=== PATIENT | male | born 1960 | race Caucasian/White ===

== ENCOUNTER 2018-11-14 16:39 | Inpatient (IN) | payer OTHER ==
[2018-11-14 17:28] LABS: #Eosinphils 0.1 thou/uL (0.0-0.7); #Lymphocytes 1.2 thou/uL (1.20-3.40); #Monocytes 0.8 thou/uL (0.11-0.59); #Neutrophils 7.5 thou/uL (1.40-6.50); %Basophils 0.1 % (0.0-1.0); %Eosinophils 0.7 % (0.0-10.0); %Lymphocytes 12.6 % (21.0-51.0); %Monocytes 8.6 % (0.0-10.0); Hemoglobin 11.5 g/dL (14.0-18.0); Mean Corpuscular HGB CONC 33.3 g/dL (32.0-36.0); Mean Corpuscular Hemoglobin 30.3 pg (27.0-31.0); Mean Corpuscular Volume 91.1 fL (78.0-98.0); Mean Platelet Volume 7.8 fL (7.4-10.4); Platelet Count 138 thou/uL (130-400); Red Blood Cell (RBC) Count 3.79 mill/uL (4.70-6.10); White Blood Cell (WBC) Count 9.7 thou/uL (4.8-10.8)
[2018-11-14 17:53] LABS: ALT (SGPT) 16 U/L (8-55); AST (SGOT) 35 U/L (5-34); Alkaline Phosphatase 127 U/L (40-150); Anion Gap 9 mmol/L (10-20); BUN (Urea Nitrogen) 21 mg/dL (8.4-25.7); Bilirubin, Total 0.4 mg/dL (0.2-1.2); Calc. Creatinine Clearance 0 mL/min (70-130); Calcium 7.3 mg/dL (7.8-10.44); Carbon Dioxide 23 mmol/L (22-29); Chloride 102 mmol/L (98-107); Estimated GFR-MDRD 37; Globulin 3.6 g/dL (2.4-3.5); Glucose 134 mg/dL (70-105); Potassium 4.3 mmol/L (3.5-5.1); Protein, Total 5.6 g/dL (6.0-8.3); Sodium 130 mmol/L (136-145)
[2018-11-14] MEDS ORDERED: HYDROcodone/Acetaminophen 5/325 mg Tablet ONE (19:29)
--- NOTE | 2018-11-14 19:54 | RAD ---
LEFT FOOT RADIOGRAPHS THREE VIEWS: 11/14/2018 PROVIDED CLINICAL HISTORY: Left toe wound. FINDINGS: There is no evidence for fracture. Alignment appears anatomic. Joint spaces appear preserved. Vasc ular calcifications are seen. No lytic or blastic osseous lesion is evident. IMPRESSION: No radiographic evidence for an acute osseous abnormality. POS: [facility]
--- NOTE | 2018-11-14 20:01 | RAD ---
PORTABLE CHEST 11/14/18 PROVIDED CLINICAL HISTORY: Edema. FINDINGS: Comparison 02/17/17. The cardiac and mediastinal silhouette is within normal limits. Left subclavian cardiac pacing device is again seen in similar position. No focal consolidation, pleural fluid or pneumothorax apparent. IMPRESSION: No evidence for an acute cardiopulmonary process. POS: [facility]
--- NOTE | 2018-11-15 00:50 | PDOC.FPRHP ---
- History of Present Illness Chief Complaint: toe pain History of Present Illness: Patient is a 58YOM with a PMH significant for CAD, CKD stage III, DMI, and a h/ o a LUE VTE on chronic anticoagulation with warfarin who [facility]/ a CC of left toe pain that began about 1 week ago. The patient reported first noticing 2 small sores on the dorsal surface of his left foot at the base of his second toe. He said over the course of the week he subsequently developed additional swelling to the point where he started to have purulent discharge and was unable to bear weight in the ball of his left foot 2/2 pain. He reported the pain to be 8/10 on exam while sitting on the hospital bed not bearing any weight. He described it as throbbing and constant in character and endorsed exacerbation with weight bearing. He also reported feeling pain in his left great toe as well. He denied any associated fever/chills or N/V. The patient also reported feeling chest pain prior to his arrival that he described as being located in his epigastrium rather than his chest that was occasionally sharp in nature and exacerbated with leaning forward. He did endorse of h/o GERD and said he takes ranitidine for this. Says the pain is similar to pain he has had before and had actually much improved since his arrival to the ED. ED Course: IV morphine, PO [place], and started on LR @ 140mL/hr - Allergies/Adverse Reactions Allergies Allergy/AdvReac Type Severity Reaction Status Date / Time codeine Allergy Verified 02/17/17 23:49 - Home Medications Medication Instructions Recorded Confirmed Type Allopurinol 300 mg PO BID 11/15/18 11/15/18 History Aspirin [Aspirin Chewable] 81 mg PO DAILY 11/15/18 11/15/18 History Atorvastatin Calcium [Lipitor] 10 mg PO DAILY 11/15/18 11/15/18 History Calcium Carb/Vitamin D3/Vit K1 1 tablet PO DAILY 11/15/18 11/15/18 History [Calcium + D Soft Chewable Tablet] Fludrocortisone Acetate 0.1 mg PO DAILY 11/15/18 11/15/18 History Humulin R [NovoLIN R] 35 units SC BID 11/15/18 11/15/18 History Humulin R [Novolin R] 8 unit SC QAM 11/15/18 11/15/18 History Humulin R [Novolin R] 8 unit SC QPM 11/15/18 11/15/18 History Isosorbide Mononitrate [Isosorbide 30 mg PO DAILY 11/15/18 11/15/18 History Mononitrate ER] Lisinopril [Zestril] 5 mg PO DAILY 11/15/18 11/15/18 History Spironolactone [Aldactone] 25 mg PO BID 11/15/18 11/15/18 History Venlafaxine HCl [Venlafaxine HCl 150 mg PO DAILY 11/15/18 11/15/18 History ER] Warfarin Sodium 3 tab PO QPM 11/15/18 11/15/18 History - History PMHx: CAD, CKD (unknown stage), Type 1 DM, HTN, HLD, Hep C, Anemia, BPH, GERD, hx of left arm DVT PSHx: pacemaker/defib placement FHx: sister and aunt DM, father: [place] Social: 1 PPD x 10 years, no alcohol, meth use at 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18, currently incarcerated - Vital signs BP: [144/87] HR: [92] RR: [16] Tmax: [98.5] Pox: [98 ]% on [RA] Wt: [92 kg] FMR H&P: Results - Labs Result Diagrams: 11/15/18 04:25 11/15/18 04:25 Lab results: WBC 9.7 thou/uL (4.8-10.8) 11/14/18 17:15 Hgb 11.5 g/dL (14.0-18.0) L 11/14/18 17:15 Hct 34.5 % (42.0-52.0) L 11/14/18 17:15 MCV 91.1 fL (78.0-98.0) 11/14/18 17:15 Plt Count 138 thou/uL (130-400) 11/14/18 17:15 Neutrophils % 78.0 % (42.0-75.0) H 11/14/18 17:15 Sodium 130 mmol/L (136-145) L 11/14/18 17:15 Potassium 4.3 mmol/L (3.5-5.1) 11/14/18 17:15 Chloride 102 mmol/L (98-107) 11/14/18 17:15 Carbon Dioxide 23 mmol/L (22-29) 11/14/18 17:15 BUN 21 mg/dL (8.4-25.7) 11/14/18 17:15 Creatinine 1.88 mg/dL (0.7-1.3) H 11/14/18 17:15 Glucose 134 mg/dL (70-105) H 11/14/18 17:15 Calcium 7.3 mg/dL (7.8-10.44) L 11/14/18 17:15 Total Bilirubin 0.4 mg/dL (0.2-1.2) 11/14/18 17:15 AST 35 U/L (5-34) H 11/14/18 17:15 ALT 16 U/L (8-55) 11/14/18 17:15 Alkaline Phosphatase 127 U/L (40-150) 11/14/18 17:15 C-Reactive Protein 10.68 mg/dL (= or < 0.5) H 11/14/18 17:15 B-Natriuretic Peptide 274.8 pg/mL (0-100) H 11/14/18 17:15 Serum Total Protein 5.6 g/dL (6.0-8.3) L 11/14/18 17:15 Albumin 2.0 g/dL (3.5-5.0) L 11/14/18 17:15 FMR H&P: A/P - Problem List (1) Osteomyelitis Current Visit: Yes Status: Acute Code(s): M86.9 - OSTEOMYELITIS, UNSPECIFIED (2) Diabetic wet gangrene of the foot Current Visit: Yes Status: Acute Code(s): E11.52 - 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 GANGRENE (3) HTN (hypertension) Current Visit: Yes Status: Acute Code(s): I10 - ESSENTIAL (PRIMARY) HYPERTENSION (4) CAD (coronary artery disease) Current Visit: Yes Status: Acute Code(s): I25.10 - ATHSCL HEART DISEASE OF [place] CORONARY ARTERY W/O ANG PCTRS (5) Hepatitis C Current Visit: Yes Status: Acute Code(s): B19.20 - UNSPECIFIED VIRAL HEPATITIS C WITHOUT HEPATIC COMA (6) Anemia Current Visit: Yes Status: Acute Code(s): D64.9 - ANEMIA, UNSPECIFIED (7) BPH (benign prostatic hyperplasia) Current Visit: Yes Status: Acute Code(s): N40.0 - BENIGN PROSTATIC HYPERPLASIA WITHOUT LOWER URINRY TRACT SYMP (8) GERD (gastroesophageal reflux disease) Current Visit: Yes Status: Acute Code(s): K21.9 - GASTRO-ESOPHAGEAL REFLUX DISEASE WITHOUT ESOPHAGITIS (9) Neuropathy Current Visit: Yes Status: Acute Code(s): G62.9 - POLYNEUROPATHY, UNSPECIFIED (10) Venous thromboembolism Current Visit: Yes Status: Acute Code(s): I82.90 - ACUTE EMBOLISM AND THROMBOSIS OF UNSPECIFIED VEIN (11) CKD (chronic kidney disease) Current Visit: Yes Status: Acute Code(s): N18.9 - CHRONIC KIDNEY DISEASE, UNSPECIFIED (12) Adrenal insufficiency Current Visit: Yes Status: Acute Code(s): E27.40 - UNSPECIFIED ADRENOCORTICAL INSUFFICIENCY - Plan 58YOM w/ a PMH significant for CAD, HTN, DMI, and CKD of an unknown stage who [facility] with a CC of a painful left toe wound that had gotten progressively worse over the last week. Wet gangrene with suspected osteomyelitis of the second left toe: - Second toe of left foot covered with black eschar and bloody, purulent discharge noted to be draining from it. Foot x-ray negative for bony involvement but CRP elevated at 10. WBC WNLs & afebrile. Will likely need to contact radiology for further imaging recs given patient's poor renal function. Need to know if MRI needs to be done w/ contrast or if it will still be helpful even without contrast for osteo evaluation. - Will start on IV abx with vanc and zosyn and keep NPO after midnight pending a general surgery vs. CV surgery vs. podiatry consult in the AM. - Will start on IVFs with LR @ 140mL/hr. - Wound care consulted. - Repeat CBC and BMP in the AM w/ blood cultures pending. DMI: - Aware, will resume 1/2 home insulin dosing while NPO and order accuchecks Q6H with aggressive SSI due to documented daily requirements of >80 units per med list. HTN: - Aware, will resume home meds once NPO. Will consider starting on IV PRNs while NPO. CAD: - Aware, per the patient no stents have been placed. Will resume home meds once taking PO. h/o defibrillator & pacemaker placement per patient: - No documented h/o CHF but on all usual CHF meds. Will resume once tolerating PO. HLD: - Aware, will resume home meds once taking PO. chronic Hep C: - Patient reports being aware of this. - Will encourage f/u for treatment if he can get this while in [facility]. Suspected adrenal insufficiency: - Suspected 2/2 patient's hyponatremia in blood work and the fact that he takes fludrocortisone at home. - Will resume once tolerating PO and watch Na closely w/ QD BMPs. CKD 2/2 DMI at unknown stage: - Aware, will renally dose meds PRN. GERD: - Aware, will start on IV protonix while NPO. h/o VTE on chronic anticoagulation with warfarin: - Aware, will get baseline coags and start on SQ Lovenox for VTE PPx while NPO. - FMR H&P: Upper Level - Pertinent history 58 yr old male with PMH hx of type 1 DM, CAD, with foot pain who is incarcerated. Reports left 2nd toe and foot pain onset 1 week ago. Pain is worst to ball of his foot. States wound started out as 2 sores that started at base of 2nd toe only 1 week ago. No reported fevers. Patient report epigastric pain that is intermittent and chronic for him. Currently having epigastric pain but no chest pain. - Pertinent findings EKG: NSR without ST changes, normal AV conduction Foot X RAY: No acute osseous abnormalities. Gen: NAD, dressed in white linen Heart: RRR, no murmurs, rubs, gallops Lungs: CTAB, no wheezes, rhales, rhonchi Abd: epigstric tenderness, no guarding, BS + ExT: left 2nd toe gangrenous, black, moist with serous discharge, top of foot erythematous, mildly tender, ball of left foot exquisitely tender with blanched appearance neuro: CN 2-12 grossly normal. alert and oriented x 4. - Plan Date/Time: 11/15/18 0050 I, [Veronica Ni], have evaluated this patient and agree with findings/plan as outlined by international guest coordinator resident. Pertinent changes/additions are listed here. 58 yr old male with PMH of type 1 DM wet gangrene with concern for osteomyelitis -afebrile, WBC wnl, elevated CRP, x ray without evidence for osseous involvement -consider MRI of foot however has stage 3 CKD, need to discuss absolute need for contrast -start vanc and zosyn -consult surgery for further evaluation Type 1 DM -cont insulin -q 6hrs accuchecks HLD -cont statin CAD -trops stable, no chest pain -cont home meds Presumable adrenal insufficiency -obtain hx when available -cont fludracortisone GERD -start protonix HEP C -AST/ALT stable CKD stage 3 -unknown if this is acutely worsened CODE status: FULL PCP: CC, unknown Addendum - Attending - Attending Attestation Date/Time: 11/15/18 6266 I personally evaluated the patient and discussed the management with Dr. Pemberton. I agree with the History, Examination, Assessment and Plan documented above with any addition or exceptions noted below. The patient is admitted with suspected osteomyalitis of the left 2nd toe with gangrene. He is on broad spectrum antibiotics. CRP is elevated. Surgery has been consulted and is taking the patient to the OR.
[2018-11-15 02:01] LABS: Troponin I Less than 0.010 ng/mL (< 0.028)
[2018-11-15] MEDS ORDERED: Dextrose 5% in Water 1,000 ML IV PRN (02:29)
[2018-11-15] MEDS ORDERED: HumaLOG 300 UNITS/3 ML VIAL SC PRN (02:29)
[2018-11-15] MEDS ORDERED: Dextrose 50% Abboject 50 ML SYRINGE SLOW IVP PRN (02:29)
[2018-11-15] MEDS ORDERED: Ondansetron PF 4 MG/2 ML Vial IVP PRN (02:29)
[2018-11-15] MEDS ORDERED: Morphine 4 MG/ML VIAL ONE ×3 (03:25→16:34)
[2018-11-15] MEDS: Lactated Ringer's 1,000 ML IV SCH ×3 (03:29→16:50)
[2018-11-15] MEDS: Morphine 4 MG/ML VIAL SLOW IVP PRN ×3 (03:33→16:41)
[2018-11-15 04:36] LABS: #Eosinphils 0.1 thou/uL (0.0-0.7); #Lymphocytes 0.8 thou/uL (1.20-3.40); #Monocytes 0.7 thou/uL (0.11-0.59); #Neutrophils 6.2 thou/uL (1.40-6.50); %Basophils 0.4 % (0.0-1.0); %Lymphocytes 10.1 % (21.0-51.0); %Monocytes 8.4 % (0.0-10.0); %Neutrophils 80.2 % (42.0-75.0); Hemoglobin 12.2 g/dL (14.0-18.0); Mean Corpuscular HGB CONC 31.8 g/dL (32.0-36.0); Mean Corpuscular Hemoglobin 29.8 pg (27.0-31.0); Mean Corpuscular Volume 93.8 fL (78.0-98.0); Mean Platelet Volume 7.7 fL (7.4-10.4); Platelet Count 153 thou/uL (130-400); RBC Distribution Width 13.3 % (11.5-14.5); White Blood Cell (WBC) Count 7.8 thou/uL (4.8-10.8)
[2018-11-15 05:03] LABS: Anion Gap 10 mmol/L (10-20); BUN (Urea Nitrogen) 21 mg/dL (8.4-25.7); Calc. Creatinine Clearance 61 mL/min (70-130); Calcium 7.7 mg/dL (7.8-10.44); Carbon Dioxide 22 mmol/L (22-29); Chloride 102 mmol/L (98-107); Estimated GFR-MDRD 41; Glucose 187 mg/dL (70-105); Potassium 4.1 mmol/L (3.5-5.1); Sodium 130 mmol/L (136-145)
[2018-11-15 05:10] LABS: Troponin I Less than 0.010 ng/mL (< 0.028)
[2018-11-15 05:54] LABS: INR-International Normal Ratio 1.2; PTT 31.1 SEC (22.9-36.1); Prothrombin Time 15.4 SEC (12.0-14.7)
[2018-11-15] MEDS: Piperacillin/Tazobactam 3.375 GM in Sodium Chloride 0.9% 100 ML IVPB SCH ×3 (06:08→17:40)
[2018-11-15] MEDS: NPH, Human Insulin Isophane 300 UNIT/3 ML VIAL SC SCH ×2 (09:00→21:00)
[2018-11-15] MEDS ORDERED: Pantoprazole 40 MG VIAL ONE (10:28)
[2018-11-15] MEDS: Vancomycin HCl 1.5 GM in Sodium Chloride 0.9% 250 ML 300 ML IVPB SCH (10:44)
[2018-11-15] MEDS: Pantoprazole 40 MG VIAL IVP SCH (10:45)
--- NOTE | 2018-11-15 11:59 | HP ---
HISTORY OF PRESENT ILLNESS: Ty Thomas is a 58-year-old male, [address] incarcerated [address] [facility], presents with diabetic infection, left foot. He has a gangrenous left toe with cellulitis to his ankle. He has had plain x-rays not demonstrating osteomyelitis, but he has wet gangrene with cellulitis and edema. He has palpable pulses. ALLERGIES: CODEINE. SOCIAL HISTORY: Tobacco, use many years ago, but incarcerated for 16 years. Alcohol, none. MEDICATIONS: 1. Coumadin daily. 2. Venlafaxine ER 150 mg a day. 3. Spironolactone 25 mg b.i.d. 4. Lisinopril 5 mg a day. 5. Isosorbide 30 mg a day. 6. Insulin 8 units subcu p.m. and a.m. 7. Regular insulin 35 units subcu b.i.d. 8. Fludrocortisone 0.1 mg daily. 9. Atorvastatin 10 mg daily. 10. Aspirin 81 mg daily. 11. Allopurinol 300 mg daily. PAST MEDICAL HISTORY: Pacemaker, defibrillator, reports cardiac event in 2006, and reports cardiomyopathy. He does have occasional chest pain and takes nitroglycerin. He reports a cardiac catheterization 5 to 6 years ago in [facility]. Insulin-dependent diabetes mellitus, hypertension, hepatitis C, and chronic anticoagulation. PAST SURGICAL HISTORY: Defibrillator and pacemaker. REVIEW OF SYSTEMS: Ten-point, otherwise noncontributory. PHYSICAL EXAMINATION: VITAL SIGNS: 98.6, 90, and 166/94. LUNGS: Clear to auscultation. CARDIAC: Regular rate and rhythm without murmur or gallop. ABDOMEN: Soft positive fluid wave. Tattoos. Nontender. EXTREMITIES: Palpable femoral, popliteal, and pedal pulses. Walking boot right foot from recent foot surgery. Gangrenous left second toe wet gangrene, cellulitis, dorsum of the foot. Edema, left foot. ASSESSMENT AND PLAN: 1. Diabetic wet gangrenous infection, left second toe. Plan amputation of left second toe and metatarsal as indicated. He understands the risks and benefits and consents. We will amputate toes as necessary, but try to salvage as much foot as possible. 2. Diabetes mellitus, insulin dependent type 1. 3. Coronary artery disease; pacemaker, defibrillator, and anticoagulation. PT 15 and INR 1.2. Hold Coumadin. On Zosyn and vancomycin. Job ID: [id number]
[2018-11-15] MEDS ORDERED: Warfarin Sodium 7.5 MG TAB PO SCH (17:00)
[2018-11-15] MEDS ORDERED: Piperacillin/Tazobactam 3.375 GM VIAL ONE (18:07)
[2018-11-15] MEDS ORDERED: Acetaminophen 500 MG TAB PO PRN (20:29)
[2018-11-15] MEDS ORDERED: Midazolam HCl 2 mg/2 ml Vial ONE (20:41)
[2018-11-15] MEDS ORDERED: Fentanyl 100 MCG/2 ML VIAL ONE (20:41)
[2018-11-15] MEDS ORDERED: KETAMINE 100 MG/ML (5ML VIAL) ONE (20:41)
[2018-11-15] MEDS ORDERED: Atorvastatin Calcium 10 MG TAB PO SCH (21:00)
[2018-11-15] MEDS: Enoxaparin Sodium 40 MG/0.4 ML SYRINGE SC SCH (21:00)
[2018-11-15] MEDS: Allopurinol 300 MG TAB PO SCH (21:00)
[2018-11-15] MEDS: Spironolactone 25 MG TAB PO SCH (21:00)
[2018-11-15] MEDS: Atorvastatin Calcium 20 MG TAB PO SCH (21:00)
[2018-11-15] MEDS ORDERED: Promethazine HCl 25 MG/ML VIAL IM PRN (21:19)
[2018-11-15] MEDS ORDERED: Promethazine HCl 25 MG/ML VIAL SLOW IVP PRN (21:19)
[2018-11-15] MEDS ORDERED: Ondansetron HCl/PF 4 MG/2 ML Vial IVP PRN (21:19)
[2018-11-16] MEDS: Piperacillin/Tazobactam 3.375 GM in Sodium Chloride 0.9% 100 ML IVPB SCH ×6 (03:00→23:39)
--- NOTE | 2018-11-16 03:35 | OP ---
DATE OF PROCEDURE: 11/15/2018 PREOPERATIVE DIAGNOSES: 1. Diabetic infection involving left second toe and foot. 2. Congestive heart failure, diastolic dysfunction. Echocardiogram in 2014 revealed diastolic dysfunction with EF of 55%. New echocardiogram ordered. POSTOPERATIVE DIAGNOSES: 1. Diabetic infection involving left second toe and foot. 2. Congestive heart failure, diastolic dysfunction. Echocardiogram in 2014 revealed diastolic dysfunction with EF of 55%. New echocardiogram ordered. PROCEDURE: Amputation of left second toe metatarsal wound VAC to be applied tomorrow. ANESTHESIA: Regional TIVA. PROCEDURE IN DETAIL: The patient was taken to the operating room where under intravenous sedation with regional anesthesia, the left foot was prepared with ChloraPrep and draped in routine fashion. Amputation of left second toe, which was gangrenous, carried down through skin and subcutaneous tissue, metatarsal dissected free, resected proximally with rongeur. Cultures obtained and submitted for microbiology. Connective tissue debrided sharply. There was good bleeding in the soft tissues. Wound was irrigated. Good hemostasis obtained. Connective tissue debrided. Surgicel and gauze dressing applied. Job ID: [id number]
[2018-11-16] MEDS: traMADol HCl 50 MG TAB PO PRN ×3 (03:48→20:39)
[2018-11-16] MEDS: Lactated Ringer's 1,000 ML IV SCH ×2 (05:02→08:29)
--- NOTE | 2018-11-16 06:02 | PDOC.FM ---
- Subjective Subjective: Mr. Thomas reports he has recovered well. Has decreased sensation of L leg due to nerve block done in OR. Denies fever/chills. Plans to eat breakfast this morning. Urinating well. Has not passed gas yet. - Objective MAR Reviewed: Yes Vital Signs & Weight: Vital Signs (12 hours) Temp Pulse Resp BP Pulse Ox 11/16/18 03:41 98.4 F 87 16 118/64 98 11/16/18 00:05 96 Weight Weight 93 kg I&O: 11/14/18 11/15/18 11/16/18 06:59 06:59 06:59 Intake Total 520 Output Total 250 Balance 270 Result Diagrams: 11/15/18 04:25 11/15/18 04:25 Phys Exam - Physical Examination Constitutional: NAD HEENT: moist MMs Respiratory: clear to auscultation bilateral Cardiovascular: RRR, no significant murmur Gastrointestinal: soft, non-tender, positive bowel sounds RLE in bandage, decreased sensation. Neurological: non-focal Skin: normal turgor, cap refill <2 seconds Dx/Plan (1) Adrenal insufficiency Code(s): E27.40 - UNSPECIFIED ADRENOCORTICAL INSUFFICIENCY Status: Acute (2) BPH (benign prostatic hyperplasia) Code(s): N40.0 - BENIGN PROSTATIC HYPERPLASIA WITHOUT LOWER URINRY TRACT SYMP Status: Acute (3) CAD (coronary artery disease) Code(s): I25.10 - ATHSCL HEART DISEASE OF [place] CORONARY ARTERY W/O ANG PCTRS Status: Acute (4) CKD (chronic kidney disease) Code(s): N18.9 - CHRONIC KIDNEY DISEASE, UNSPECIFIED Status: Acute (5) Diabetic wet gangrene of the foot Code(s): E11.52 - 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 [place]ANGR[place] Status: Acute (6) GERD (gastroesophageal reflux disease) Code(s): K21.9 - GASTRO-ESOPHAGEAL REFLUX DISEASE WITHOUT ESOPHAGITIS Status: Acute (7) HTN (hypertension) Code(s): I10 - ESSENTIAL (PRIMARY) HYPERTENSION Status: Acute (8) Hepatitis C Code(s): B19.20 - UNSPECIFIED VIRAL HEPATITIS C WITHOUT HEPATIC COMA Status: Acute (9) Venous thromboembolism Code(s): I82.90 - ACUTE EMBOLISM AND THROMBOSIS OF UNSPECIFIED VEIN Status: Acute - Plan Plan: 58YOM w/ a PMH significant for CAD, HTN, DMI, and CKD of an unknown stage who presented to the ED from [facility] with a CC of a painful left toe wound that had gotten progressively worse over the last week. Wet gangrene, POD #1 s/p amputation - Continue vanc and zosyn (11/15) per surgery recs - discontinue IVF - Wound care consulted, plan for wound vac placement today - Blood cultures with staph epidermidis, likely contaminant - pain well controlled - wound culture pending IDDM2 - BG stable. Resume home medications HTN: - continue home meds CAD: - continue home meds h/o defibrillator & pacemaker placement per patient: - No documented h/o CHF but on all usual CHF meds, continue HLD: - continue home lipitor chronic Hep C: - Patient reports being aware of this. - Will encourage f/u for treatment if he can get this while in [facility]. Suspected adrenal insufficiency: - Suspected 2/2 patient's hyponatremia in blood work and the fact that he takes fludrocortisone at home. - continue. Patient does not know why he is on this medication. Will speak with [facility] today to get more history. - will check cortisol CKD 2/2 DM at unknown stage: GERD: - not on home medication for this h/o VTE on chronic anticoagulation with warfarin: - INR 1.2, subtherapeutic. will restart today Addendum - Attending - Attending Attestation Date/Time: 11/16/18 8295 I personally evaluated the patient and discussed the management with Dr. Pemberton. I agree with the History, Examination, Assessment and Plan documented above with any addition or exceptions noted below. Patient remains on IV antibiotics. Wound care is going to apply a wound vac. Cultures are pending. Will be clarifying some meds with [facility] as well as diagnoses as the pt states he doesn't know why he is on some meds.
[2018-11-16] MEDS: Spironolactone 25 MG TAB PO SCH ×2 (08:20→20:39)
[2018-11-16] MEDS: Calcium Carbonate + Vit D 1 TAB PO SCH (08:20)
[2018-11-16] MEDS: Venlafaxine HCl XR 150 MG CAP PO SCH (08:20)
[2018-11-16] MEDS: Lisinopril 5 MG TAB PO SCH (08:20)
[2018-11-16] MEDS: Fludrocortisone Acetate 0.1 MG TAB PO SCH (08:20)
[2018-11-16] MEDS: Allopurinol 300 MG TAB PO SCH ×2 (08:20→20:39)
[2018-11-16] MEDS: Pantoprazole 40 MG VIAL IVP SCH (08:20)
[2018-11-16] MEDS: Vancomycin HCl 1.5 GM in Sodium Chloride 0.9% 250 ML 300 ML IVPB SCH (08:27)
[2018-11-16] MEDS: NPH, Human Insulin Isophane 300 UNIT/3 ML VIAL SC SCH ×2 (11:44→20:48)
[2018-11-16] MEDS: Warfarin Sodium 2.5 MG TAB PO SCH (18:05)
--- NOTE | 2018-11-16 18:46 | PRG ---
DATE OF SERVICE: 11/16/2018 SUBJECTIVE: Mr. Thomas is doing well. He underwent amputation of wet gangrenous toe 11/15/2018, left second toe and metatarsal. Cultures reveal Staphylococcus aureus so far. Blood cultures 1 or 2 positive coagulase-negative Staphylococcus. The patient has wound VAC in place. I did call the [facility] yesterday and received a call back and was informed his last echocardiogram was in 2013 with ejection fraction 55% with diastolic dysfunction. I order another echocardiogram this morning, the results of which are pending. The patient has edema in upper and lower extremities and has a defibrillator pacemaker in place. He has been on anticoagulation Coumadin, but his PT/INR was normal on admission. The patient has had previous surgeries on his right foot and has been advised to use a walking boot when he is out of bed, but he can weightbear as tolerated when wearing the walking boot. I have ordered orthotic shoe left foot to be used when he is out of bed and can weightbear as tolerated left foot and I have asked Physical Therapy to see him to ambulate him. The patient's infected toe wound has been resected. Wound Care has been consulted to place a wound VAC this morning. I would plan to look at the wound next week Tuesday. The patient should continue intravenous antibiotics over the weekend and we would plan to probably discontinue intravenous antibiotics next week. If the wound looks good, he can transition to oral antibiotics for about 10 days. I will see the patient next Tuesday, wound care change. Dr. Mayberry is covering over the weekend. Please call if needed. Echocardiogram pending. Job ID: [id number]
[2018-11-16 19:24] LABS: Hemoglobin 10.8 g/dL (14.0-18.0); Platelet Count 137 thou/uL (130-400)
[2018-11-16] MEDS: Atorvastatin Calcium 20 MG TAB PO SCH (20:38)
[2018-11-16] MEDS: Enoxaparin Sodium 40 MG/0.4 ML SYRINGE SC SCH (20:39)
[2018-11-16] MEDS ORDERED: INSULIN REGULAR SC SCH ×2 (21:00)
[2018-11-17] MEDS: Piperacillin/Tazobactam 3.375 GM in Sodium Chloride 0.9% 100 ML IVPB SCH ×2 (05:57→12:33)
[2018-11-17] MEDS: traMADol HCl 50 MG TAB PO PRN ×3 (06:00→20:40)
--- NOTE | 2018-11-17 06:32 | PDOC.FM ---
- Subjective Subjective: Mr. Thomas notes that the nerve block is wearing off so he feels more pain, however it is well controlled. Good PO intake. Denies fever, SOB. Says continued swelling. - Objective MAR Reviewed: Yes Vital Signs & Weight: Vital Signs (12 hours) Temp Pulse Resp BP Pulse Ox 11/17/18 03:38 99.4 F 80 20 119/59 L 95 11/16/18 20:05 97 11/16/18 19:47 98.7 F 82 14 113/58 L 97 Weight Admit Weight 93 kg Weight 93 kg I&O: 11/15/18 11/16/18 11/17/18 06:59 06:59 06:59 Intake Total 660 299 1869 Output Total 892 974 8248 Balance 270 -51 -125 Result Diagrams: 11/17/18 07:05 11/17/18 07:05 Phys Exam - Physical Examination Constitutional: NAD Respiratory: clear to auscultation bilateral Cardiovascular: RRR, no significant murmur Gastrointestinal: non-tender, positive bowel sounds (Distended, tight) LE pitting edema, Left food wound vac/dressing in place. b/l arm edema Neurological: non-focal Psychiatric: normal affect Skin: normal turgor Dx/Plan (1) Adrenal insufficiency Code(s): E27.40 - UNSPECIFIED ADRENOCORTICAL INSUFFICIENCY Status: Acute (2) BPH (benign prostatic hyperplasia) Code(s): N40.0 - BENIGN PROSTATIC HYPERPLASIA WITHOUT LOWER URINRY TRACT SYMP Status: Acute (3) CAD (coronary artery disease) Code(s): I25.10 - ATHSCL HEART DISEASE OF [place] CORONARY ARTERY W/O ANG PCTRS Status: Acute (4) CKD (chronic kidney disease) Code(s): N18.9 - CHRONIC KIDNEY DISEASE, UNSPECIFIED Status: Acute (5) Diabetic wet gangrene of the foot Code(s): E11.52 - 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 GANGRENE Status: Acute (6) GERD (gastroesophageal reflux disease) Code(s): K21.9 - GASTRO-ESOPHAGEAL REFLUX DISEASE WITHOUT ESOPHAGITIS Status: Acute (7) HTN (hypertension) Code(s): I10 - ESSENTIAL (PRIMARY) HYPERTENSION Status: Acute (8) Hepatitis C Code(s): B19.20 - UNSPECIFIED VIRAL HEPATITIS C WITHOUT HEPATIC COMA Status: Acute (9) Venous thromboembolism Code(s): I82.90 - ACUTE EMBOLISM AND THROMBOSIS OF UNSPECIFIED VEIN Status: Acute - Plan Plan: 58YOM w/ a PMH significant for CAD, HTN, DMI, and CKD of an unknown stage who [facility] with a CC of a painful left toe wound that had gotten progressively worse over the last week. Wet gangrene, POD #2 s/p amputation - Continue vanc and zosyn (11/15) per surgery recs, will continue IV through weekend with switch to PO likely on Tuesday. - Wound care consulted, wound vac in place - Blood cultures with staph epidermidis, likely contaminant. - Wound culture with MRSA. - pain well controlled YANELIS on CKD of unknown stage - CKD 2/2 DM - Cr 1.7->2.3 today - continue to monitor - avoid nephrotoxic medications and renally dose vanc Anasarca - echo pending - on CHF medications however no known diagnosis. Last echo 2013 with EF 55% w/ diastolic dysfunction IDDM2 - BG stable. No SSI used. Currently at insulin dose less than home med. Will increase as needed. HTN: - continue home meds CAD: - continue home meds h/o defibrillator & pacemaker placement: - No documented h/o CHF but on all usual CHF meds, continue HLD: - continue home lipitor chronic Hep C: - Patient reports being aware of this. - Will encourage f/u for treatment if he can get this while in [facility]. Suspected adrenal insufficiency: - [facility] records show pt was admitted in 2013 with hypotension and was started on fludrocortisone. Endocrinology follow up outpatient recommended however pt refused and has continued to be on med since then. - will check cortisol normal GERD: - not on home medication for this h/o VTE on chronic anticoagulation with warfarin: - INR 1.2, subtherapeutic. after 1 dose of warfarin. - pt says RUE DVT was 8 years ago and has been on warfarin since. No other hx a fib or other reason to be on anticoagulation. Will discuss with patient. Addendum - Attending - Attending Attestation Date/Time: 11/17/18 4725 I personally evaluated the patient and discussed the management with Dr. Pemberton. I agree with the History, Examination, Assessment and Plan documented above with any addition or exceptions noted below. The patient is doing well. Continuing IV antibiotics through the weekend. Cultures growing MRSA. Pt has been on fludrocortisone for about 4 years because he never followed up with endocrinology. Discussing with pharmacy if titration needs to be done in order to stop this. Also discussing need for coumadin as dvt was 8 years ago and we don't have other documented reasons for anticoagulation. Awaiting echo.
[2018-11-17 07:20] LABS: #Eosinphils 0.2 thou/uL (0.0-0.7); #Lymphocytes 1.1 thou/uL (1.20-3.40); #Monocytes 0.7 thou/uL (0.11-0.59); #Neutrophils 5.5 thou/uL (1.40-6.50); %Basophils 0.1 % (0.0-1.0); %Lymphocytes 14.9 % (21.0-51.0); Hemoglobin 9.9 g/dL (14.0-18.0); Mean Corpuscular HGB CONC 35.2 g/dL (32.0-36.0); Mean Corpuscular Hemoglobin 31.9 pg (27.0-31.0); Mean Corpuscular Volume 90.6 fL (78.0-98.0); Mean Platelet Volume 7.2 fL (7.4-10.4); Platelet Count 136 thou/uL (130-400); White Blood Cell (WBC) Count 7.4 thou/uL (4.8-10.8)
[2018-11-17 07:28] LABS: INR-International Normal Ratio 1.2; Prothrombin Time 15.3 SEC (12.0-14.7)
[2018-11-17 07:44] LABS: Anion Gap 13 mmol/L (10-20); BUN (Urea Nitrogen) 25 mg/dL (8.4-25.7); Calc. Creatinine Clearance 46 mL/min (70-130); Calcium 7.2 mg/dL (7.8-10.44); Carbon Dioxide 20 mmol/L (22-29); Chloride 106 mmol/L (98-107); Estimated GFR-MDRD 29; Glucose 71 mg/dL (70-105); Potassium 3.9 mmol/L (3.5-5.1); Sodium 135 mmol/L (136-145)
[2018-11-17 07:49] LABS: Vancomycin, Trough 20.8 ug/mL
[2018-11-17] MEDS ORDERED: INSULIN REGULAR SC SCH (09:00)
[2018-11-17] MEDS: Venlafaxine HCl XR 150 MG CAP PO SCH (09:11)
[2018-11-17] MEDS: Fludrocortisone Acetate 0.1 MG TAB PO SCH (09:12)
[2018-11-17] MEDS: Calcium Carbonate + Vit D 1 TAB PO SCH (09:12)
[2018-11-17] MEDS: Spironolactone 25 MG TAB PO SCH ×2 (09:12→20:41)
[2018-11-17] MEDS: Allopurinol 300 MG TAB PO SCH ×2 (09:12→20:40)
[2018-11-17] MEDS: Lisinopril 5 MG TAB PO SCH (09:12)
[2018-11-17] MEDS: NPH, Human Insulin Isophane 300 UNIT/3 ML VIAL SC SCH ×2 (09:13→20:42)
[2018-11-17] MEDS: Vancomycin HCl 1.5 GM in Sodium Chloride 0.9% 250 ML 300 ML IVPB SCH (09:14)
[2018-11-17 09:32] LABS: INR-International Normal Ratio 1.2; Prothrombin Time 15.8 SEC (12.0-14.7)
--- NOTE | 2018-11-17 12:19 | PRG ---
DATE OF SERVICE: 11/17/2018 Ty Thomas is doing well today. Cultures reveal MRSA. It is sensitive to multiple oral antibiotics. I would recommend continuing with IV antibiotics for now. I will review his wound on Tuesday. Dr. Mayberry is covering this weekend and will only see him as needed. The patient will need to be discharged home on oral antibiotics for 10 days post discharge. We will review his wound on Tuesday and make recommendations at that point. Job ID: [id number]
[2018-11-17] MEDS: Warfarin Sodium 2.5 MG TAB PO SCH (17:50)
[2018-11-17] MEDS: Atorvastatin Calcium 20 MG TAB PO SCH (20:39)
[2018-11-17] MEDS: Enoxaparin Sodium 40 MG/0.4 ML SYRINGE SC SCH (20:41)
[2018-11-18] MEDS: traMADol HCl 50 MG TAB PO PRN (05:31)
--- NOTE | 2018-11-18 06:26 | PDOC.FM ---
- Subjective Subjective: Mr. Thomas notes he is tolerating PO intake, urinating, passing flatus. Has no new concerns. Says block has completely worn off, but says pain is overall controlled. No SOB. - Objective MAR Reviewed: Yes Vital Signs & Weight: Vital Signs (12 hours) Temp Pulse Resp BP Pulse Ox 11/17/18 20:04 93 L 11/17/18 19:56 99 F 88 16 114/58 L 93 L Weight Admit Weight 93 kg Weight 93 kg I&O: 11/16/18 11/17/18 11/18/18 06:59 06:59 06:59 Intake Total 750 1090 880 Output Total 801 1215 1075 Balance -51 125 -297 Result Diagrams: 11/18/18 05:39 11/18/18 05:39 Phys Exam - Physical Examination Constitutional: NAD HEENT: moist MMs Respiratory: clear to auscultation bilateral (exam limited d/t body habitus) Cardiovascular: RRR, no significant murmur (exam limited d/t body habitus) Gastrointestinal: non-tender, positive bowel sounds (distended) 3+ pitting edema b/l LE, arms seem to be edematous as well. 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 Status: Acute (2) Adrenal insufficiency Code(s): E27.40 - UNSPECIFIED ADRENOCORTICAL INSUFFICIENCY Status: Acute (3) BPH (benign prostatic hyperplasia) Code(s): N40.0 - BENIGN PROSTATIC HYPERPLASIA WITHOUT LOWER URINRY TRACT SYMP Status: Acute (4) CAD (coronary artery disease) Code(s): I25.10 - ATHSCL HEART DISEASE OF [place] CORONARY ARTERY W/O ANG PCTRS Status: Acute (5) CKD (chronic kidney disease) Code(s): N18.9 - CHRONIC KIDNEY DISEASE, UNSPECIFIED Status: Acute (6) GERD (gastroesophageal reflux disease) Code(s): K21.9 - GASTRO-ESOPHAGEAL REFLUX DISEASE WITHOUT ESOPHAGITIS Status: Acute (7) HTN (hypertension) Code(s): I10 - ESSENTIAL (PRIMARY) HYPERTENSION Status: Acute (8) Hepatitis C Code(s): B19.20 - UNSPECIFIED VIRAL HEPATITIS C WITHOUT HEPATIC COMA Status: Acute (9) Venous thromboembolism Code(s): I82.90 - ACUTE EMBOLISM AND THROMBOSIS OF UNSPECIFIED VEIN Status: Acute - Plan Plan: 58YOM w/ a PMH significant for CAD, HTN, DMI, and CKD of an unknown stage who presented to the ED from [facility] with a CC of a painful left toe wound that had gotten progressively worse over the last week. Wet gangrene, POD #3 s/p L 2nd metatarsal amputation - Continue vanc (11/15), will continue IV through weekend with switch to PO likely on Tuesday. Zosyn (11/15-) discontinued after sensitivities resulted. - Wound care consulted, wound vac in place - Blood cultures with staph epidermidis, likely contaminant. - Wound culture with MRSA sensitive to vanc. 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 Last echo 2013 with EF 55% w/ diastolic dysfunction - Echo 11/17 showed EF 40-45%, LA mildly dilated, moderate mitral regurg, defibrillator in place - Will give one time dose 40 mg lasix IV today to see response. Presentation could be 2/2 CHF vs chronic fludrocortisone use w/o adrenal insufficiency diagnosis vs liver etiology with hx Hep C IDDM2 - BG ranged 73-159 in past 24hrs. No SSI used. Currently at insulin dose less than home med. Will adjust as needed. HTN: - continue home meds CAD: - continue home meds h/o defibrillator & pacemaker placement: - continue meds as above HLD: - continue home lipitor chronic Hep C: - Patient reports being aware of this. - Will encourage f/u for treatment if he can get this while in [facility]. - AST 35 on presentation Suspected adrenal insufficiency: - [facility] records show pt was admitted in 2013 with hypotension and was started on fludrocortisone. Endocrinology follow up outpatient recommended however pt refused and has continued to be on med since then. 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 - pt says LAUREN DVT was 8 years ago and has been on warfarin since. No other hx a fib or other reason to be on anticoagulation. Will discuss with patient. Dispo: to continue IV abx over weekend. Tuesday will be reassessed by Dr. King. Addendum - Attending - Attending Attestation Date/Time: 11/18/18 1037 I personally evaluated the patient and discussed the management with Dr. Pemberton. I agree with the History, Examination, Assessment and Plan documented above with any addition or exceptions noted below. Patient will continue IV vancomycin. Creatinine has increased by he is also diffusely edematous. Will give a dose of IV lasix. Echo shows reduced EF. Will discuss with cardiology. Continue wound vac.
[2018-11-18 06:28] LABS: #Eosinphils 0.1 thou/uL (0.0-0.7); #Lymphocytes 1.2 thou/uL (1.20-3.40); #Monocytes 0.5 thou/uL (0.11-0.59); #Neutrophils 3.9 thou/uL (1.40-6.50); %Eosinophils 2.5 % (0.0-10.0); %Lymphocytes 20.9 % (21.0-51.0); %Monocytes 8.8 % (0.0-10.0); %Neutrophils 67.8 % (42.0-75.0); Hemoglobin 9.6 g/dL (14.0-18.0); Mean Corpuscular HGB CONC 32.8 g/dL (32.0-36.0); Mean Corpuscular Volume 91.5 fL (78.0-98.0); Mean Platelet Volume 7.1 fL (7.4-10.4); Platelet Count 150 thou/uL (130-400); RBC Distribution Width 13.1 % (11.5-14.5); Red Blood Cell (RBC) Count 3.18 mill/uL (4.70-6.10); White Blood Cell (WBC) Count 5.8 thou/uL (4.8-10.8)
[2018-11-18 06:46] LABS: INR-International Normal Ratio 1.1; Prothrombin Time 14.4 SEC (12.0-14.7)
[2018-11-18 06:49] LABS: Anion Gap 10 mmol/L (10-20); BUN (Urea Nitrogen) 26 mg/dL (8.4-25.7); Calc. Creatinine Clearance 46 mL/min (70-130); Calcium 7.2 mg/dL (7.8-10.44); Carbon Dioxide 21 mmol/L (22-29); Chloride 107 mmol/L (98-107); Estimated GFR-MDRD 29; Glucose 109 mg/dL (70-105); Potassium 3.7 mmol/L (3.5-5.1); Sodium 134 mmol/L (136-145)
[2018-11-18] MEDS ORDERED: Furosemide 40 MG/4 ML VIAL SLOW IVP SCH (08:45)
[2018-11-18 09:30] LABS: INR-International Normal Ratio 1.1; Prothrombin Time 14.2 SEC (12.0-14.7)
[2018-11-18] MEDS: Fludrocortisone Acetate 0.1 MG TAB PO SCH (09:42)
[2018-11-18] MEDS: Calcium Carbonate + Vit D 1 TAB PO SCH (09:42)
[2018-11-18] MEDS: Lisinopril 5 MG TAB PO SCH (09:42)
[2018-11-18] MEDS: Allopurinol 300 MG TAB PO SCH ×2 (09:42→20:15)
[2018-11-18] MEDS: Venlafaxine HCl XR 150 MG CAP PO SCH (09:42)
[2018-11-18] MEDS: Vancomycin HCl 1 GM in Premix Bag 1 BAG IVPB SCH (09:43)
[2018-11-18] MEDS: NPH, Human Insulin Isophane 300 UNIT/3 ML VIAL SC SCH ×2 (09:43→20:16)
[2018-11-18] MEDS: Spironolactone 25 MG TAB PO SCH ×2 (10:04→20:15)
[2018-11-18] MEDS: Warfarin Sodium 5 MG TAB PO SCH (18:17)
[2018-11-18] MEDS: Acetaminophen 325 MG TAB PO SCH (18:19)
[2018-11-18 19:12] LABS: Platelet Count 168 thou/uL (130-400)
[2018-11-18] MEDS: Atorvastatin Calcium 20 MG TAB PO SCH (20:15)
[2018-11-18] MEDS: Enoxaparin Sodium 40 MG/0.4 ML SYRINGE SC SCH (20:15)
[2018-11-19] MEDS: Acetaminophen 325 MG TAB PO SCH ×5 (00:10→22:12)
--- NOTE | 2018-11-19 06:30 | PDOC.FM ---
- Subjective Subjective: Mr. Thomas denies SOB. Says he has not noticed a difference in his edema. Prefers tramadol for pain. - Objective MAR Reviewed: Yes Vital Signs & Weight: Vital Signs (12 hours) Temp Pulse Resp BP Pulse Ox 11/19/18 05:29 95 11/18/18 20:00 95 11/18/18 19:58 98.3 F 84 14 134/65 95 Weight Admit Weight 93 kg Weight 93 kg I&O: 11/17/18 11/18/18 11/19/18 06:59 06:59 06:59 Intake Total 3958 294 7192 Output Total 1215 1075 1974 Balance -264 -640 -026 Result Diagrams: 11/19/18 07:35 11/19/18 07:35 Phys Exam - Physical Examination Constitutional: NAD Respiratory: no wheezing (crackles, both lower lung bases) Cardiovascular: RRR, no significant murmur Gastrointestinal: non-tender, positive bowel sounds (distended/tight) 3+ pitting edema b/l LE, improved compared to yesterday. 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 GANGRENE Status: Acute (2) Adrenal insufficiency Code(s): E27.40 - UNSPECIFIED ADRENOCORTICAL INSUFFICIENCY Status: Acute (3) BPH (benign prostatic hyperplasia) Code(s): N40.0 - BENIGN PROSTATIC HYPERPLASIA WITHOUT LOWER URINRY TRACT SYMP Status: Acute (4) CAD (coronary artery disease) Code(s): I25.10 - ATHSCL HEART DISEASE OF [place] CORONARY ARTERY W/O ANG PCTRS Status: Acute (5) CKD (chronic kidney disease) Code(s): N18.9 - CHRONIC KIDNEY DISEASE, UNSPECIFIED Status: Acute (6) GERD (gastroesophageal reflux disease) Code(s): K21.9 - GASTRO-ESOPHAGEAL REFLUX DISEASE WITHOUT ESOPHAGITIS Status: Acute (7) HTN (hypertension) Code(s): I10 - ESSENTIAL (PRIMARY) HYPERTENSION Status: Acute (8) Hepatitis C Code(s): B19.20 - UNSPECIFIED VIRAL HEPATITIS C WITHOUT HEPATIC COMA Status: Acute (9) Venous thromboembolism Code(s): I82.90 - ACUTE EMBOLISM AND THROMBOSIS OF UNSPECIFIED VEIN Status: Acute - Plan Plan: 58YOM w/ a PMH significant for CAD, HTN, DMI, and CKD of an unknown stage who [facility] with a CC of a painful left toe wound that had gotten progressively worse over the last week. Wet gangrene, POD #4 s/p L 2nd metatarsal amputation - Continue vanc (11/15), will continue IV through weekend with switch to PO likely on Tuesday per Dr. Fernando waldron. Zosyn (11/15-) discontinued after sensitivities resulted. - Wound care consulted, wound vac in place - Blood cultures with staph epidermidis, likely contaminant. - Wound culture with MRSA sensitive to vanc. 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 Last echo 2013 with EF 55% w/diastolic dysfunction - Echo 11/17 showed EF 40-45%, LA mildly dilated, moderate mitral regurg, defibrillator in place - Presentation could be 2/2 CHF vs chronic fludrocortisone use w/o adrenal insufficiency diagnosis - on lisinopril, spironolactone at home. Will need to start BB before discharge - Dr. Webb, cardiology consulted 11/18 - clinically responded well to 40 IV lasix yesterday. Will give another dose today and monitor UOP IDDM2 - Currently at insulin dose less than home med. However BG lower than goal. Will decrease 18->15 NPH BID HTN: - continue home isosorbide, judith, spironolactone CAD: - continue statin, aspirin h/o defibrillator & pacemaker placement: - continue meds as above HLD: - continue home lipitor chronic Hep C: - Patient reports being aware of this. - Will encourage f/u for treatment if he can get this while in senior living. - AST 35 on presentation Suspected adrenal insufficiency: - [facility] records show pt was admitted in 2013 with hypotension and was started on fludrocortisone. Endocrinology follow up outpatient recommended however pt refused and has continued to be on med since then. - cortisol normal - will recommend [employer] taper in outpatient setting GERD: - not on home medication for this h/o VTE on chronic anticoagulation with warfarin: - INR 1.1, subtherapeutic. Increased from 2.5->5mg on 11/18 - pt says LAUREN DVT was 8 years ago and has been on warfarin since. No other hx a fib or other reason to be on anticoagulation. Will discuss with patient and see cardiology the need for continued anticoagulation. Hx of Gout - continue home allopurinol Dispo: to continue IV abx over weekend. Tuesday will be reassessed by Dr. King. Awaiting cardiology recs. Addendum - Attending - Attending Attestation Date/Time: 11/19/18 3596 I personally evaluated the patient and discussed the management with Dr. Pemberton. I agree with the History, Examination, Assessment and Plan documented above with any addition or exceptions noted below. Lower extremity edema does appear improved after 1 dose of IV lasix yesterday. Creatinine is slightly improved as well. Will repeat a dose of lasix today. Cardiology consult is pending for the worsening EF. He remains on IV antibiotics and will likely transition to po tomorrow per surgery recs.
[2018-11-19 07:52] LABS: #Eosinphils 0.2 thou/uL (0.0-0.7); #Monocytes 0.5 thou/uL (0.11-0.59); #Neutrophils 3.8 thou/uL (1.40-6.50); %Basophils 0.2 % (0.0-1.0); %Eosinophils 3.2 % (0.0-10.0); %Lymphocytes 17.6 % (21.0-51.0); %Monocytes 8.3 % (0.0-10.0); %Neutrophils 70.8 % (42.0-75.0); Hemoglobin 9.7 g/dL (14.0-18.0); Mean Corpuscular HGB CONC 33.4 g/dL (32.0-36.0); Mean Corpuscular Volume 89.7 fL (78.0-98.0); Mean Platelet Volume 6.9 fL (7.4-10.4); Platelet Count 158 thou/uL (130-400); RBC Distribution Width 12.8 % (11.5-14.5); Red Blood Cell (RBC) Count 3.24 mill/uL (4.70-6.10); White Blood Cell (WBC) Count 5.4 thou/uL (4.8-10.8)
[2018-11-19 08:00] LABS: INR-International Normal Ratio 1.1; Prothrombin Time 14.6 SEC (12.0-14.7)
[2018-11-19 08:06] LABS: Anion Gap 13 mmol/L (10-20); BUN (Urea Nitrogen) 24 mg/dL (8.4-25.7); Calc. Creatinine Clearance 47 mL/min (70-130); Calcium 7.2 mg/dL (7.8-10.44); Carbon Dioxide 21 mmol/L (22-29); Chloride 107 mmol/L (98-107); Estimated GFR-MDRD 30; Glucose 83 mg/dL (70-105); Potassium 3.5 mmol/L (3.5-5.1); Sodium 137 mmol/L (136-145)
[2018-11-19 08:07] LABS: Vancomycin, Trough 17.6 ug/mL
[2018-11-19] MEDS: Allopurinol 300 MG TAB PO SCH ×2 (08:48→22:03)
[2018-11-19] MEDS: Spironolactone 25 MG TAB PO SCH ×2 (08:48→22:05)
[2018-11-19] MEDS: Vancomycin HCl 1 GM in Premix Bag 1 BAG IVPB SCH (08:48)
[2018-11-19] MEDS: Fludrocortisone Acetate 0.1 MG TAB PO SCH (08:48)
[2018-11-19] MEDS: Calcium Carbonate + Vit D 1 TAB PO SCH (08:48)
[2018-11-19] MEDS: Venlafaxine HCl XR 150 MG CAP PO SCH (08:49)
[2018-11-19] MEDS: Lisinopril 5 MG TAB PO SCH (08:49)
[2018-11-19] MEDS: NPH, Human Insulin Isophane 300 UNIT/3 ML VIAL SC SCH (08:50)
[2018-11-19] MEDS ORDERED: Furosemide 40 MG/4 ML VIAL SLOW IVP SCH (09:45)
[2018-11-19] MEDS: traMADol HCl 50 MG TAB PO PRN ×3 (10:22→22:12)
[2018-11-19] MEDS: HumaLOG 300 UNITS/3 ML VIAL SC PRN (13:38)
[2018-11-19] MEDS: Warfarin Sodium 5 MG TAB PO SCH (16:48)
[2018-11-19] MEDS ORDERED: NPH, Human Insulin Isophane 300 UNIT/3 ML VIAL SC SCH (21:00)
[2018-11-19] MEDS: Atorvastatin Calcium 20 MG TAB PO SCH (22:03)
[2018-11-19] MEDS: Enoxaparin Sodium 40 MG/0.4 ML SYRINGE SC SCH (22:03)
[2018-11-20 05:29] LABS: #Eosinphils 0.2 thou/uL (0.0-0.7); #Lymphocytes 0.9 thou/uL (1.20-3.40); #Monocytes 0.3 thou/uL (0.11-0.59); #Neutrophils 3.6 thou/uL (1.40-6.50); %Eosinophils 3.6 % (0.0-10.0); %Lymphocytes 17.3 % (21.0-51.0); %Monocytes 6.9 % (0.0-10.0); %Neutrophils 72.2 % (42.0-75.0); Hemoglobin 10.6 g/dL (14.0-18.0); Mean Corpuscular HGB CONC 33.3 g/dL (32.0-36.0); Mean Corpuscular Hemoglobin 29.7 pg (27.0-31.0); Mean Corpuscular Volume 89.1 fL (78.0-98.0); Mean Platelet Volume 7.6 fL (7.4-10.4); Platelet Count 169 thou/uL (130-400); RBC Distribution Width 12.8 % (11.5-14.5); Red Blood Cell (RBC) Count 3.56 mill/uL (4.70-6.10); White Blood Cell (WBC) Count 4.9 thou/uL (4.8-10.8)
[2018-11-20 05:31] LABS: INR-International Normal Ratio 1.1; Prothrombin Time 14.5 SEC (12.0-14.7)
[2018-11-20 05:53] LABS: Anion Gap 10 mmol/L (10-20); BUN (Urea Nitrogen) 26 mg/dL (8.4-25.7); Calc. Creatinine Clearance 51 mL/min (70-130); Calcium 7.9 mg/dL (7.8-10.44); Carbon Dioxide 26 mmol/L (22-29); Chloride 104 mmol/L (98-107); Estimated GFR-MDRD 33; Glucose 180 mg/dL (70-105); Potassium 3.5 mmol/L (3.5-5.1); Sodium 136 mmol/L (136-145)
--- NOTE | 2018-11-20 05:59 | PDOC.FM ---
- Subjective Subjective: NAEO. Mild pain at surgical site. - Objective MAR Reviewed: Yes Vital Signs & Weight: Vital Signs (12 hours) Temp Pulse Resp BP Pulse Ox 11/20/18 05:36 96 11/20/18 03:30 98.3 F 82 13 138/79 95 11/19/18 22:01 98.1 F 82 16 168/84 H 96 Weight Admit Weight 93 kg Weight 93 kg I&O: 11/18/18 11/19/18 11/20/18 06:59 06:59 06:59 Intake Total 880 1420 1247 Output Total 1075 4334 1800 Balance -002 -612 -553 Result Diagrams: 11/20/18 05:07 11/20/18 05:07 Phys Exam - Physical Examination Constitutional: NAD HEENT: moist MMs, sclera anicteric Neck: full ROM Musculoskeletal: edema present (2+ BLE) left foot bandaged from surgery Neurological: non-focal, moves all 4 limbs Psychiatric: normal affect, A&O x 3 Dx/Plan (1) Diabetic wet gangrene of the foot Code(s): E11.52 - 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 GANGRENE Status: Acute (2) Status post amputation of toe of left foot Code(s): Z89.422 - ACQUIRED ABSENCE OF OTHER LEFT TOE(S) Status: Acute (3) CHF (congestive heart failure) Code(s): I50.9 - HEART FAILURE, UNSPECIFIED Status: Acute (4) Insulin dependent diabetes mellitus Code(s): E11.9 - TYPE 2 DIABETES MELLITUS WITHOUT COMPLICATIONS; Z79.4 - LONG-TERM (CURRENT) USE OF INSULIN Status: Acute (5) BPH (benign prostatic hyperplasia) Code(s): N40.0 - BENIGN PROSTATIC HYPERPLASIA WITHOUT LOWER URINRY TRACT SYMP Status: Acute (6) CKD (chronic kidney disease) Code(s): N18.9 - CHRONIC KIDNEY DISEASE, UNSPECIFIED Status: Acute (7) HTN (hypertension) Code(s): I10 - ESSENTIAL (PRIMARY) HYPERTENSION Status: Acute - Plan Plan: 58YOM w/ a PMH significant for CAD, HTN, DMI, and CKD of an unknown stage admitted for wet gangrene of left foot s/p L 2nd metatarsal amputation. MRSA+ wet gangrene of L foot; POD #5, s/p L 2nd metatarsal amputation - Continue vanc (11/15), will continue IV through weekend with switch to PO likely on Tuesday per Dr. King recs. Zosyn (11/15-) discontinued after sensitivities resulted. - Wound care following, wound vac in place - Blood cultures s. 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 Last echo 2013 with EF 55% w/diastolic dysfunction - Echo 11/17 showed EF 40-45%, LA mildly dilated, moderate mitral regurg, defibrillator in place - Anasarca on presentation could be 2/2 CHF vs inappropriate chronic fludrocortisone use since dx of adrenal insuff. is questionable - on lisinopril, spironolactone, metoprolol succinate - Dr. Webb, cardiology consulted 11/18, awaiting recs - Good UOP 500cc/24hr, will give lasix x1 today - Monitor I/O, UOP, daily weights, fluid restrict diet IDDM2 - FBG elevated at 180 - Inc NPH to 17 units BID - Continue to monitor HTN - continue home isosorbide, judith, spironolactone CAD - continue statin, aspirin H/o defibrillator & pacemaker placement - continue meds as above HLD - continue home lipitor chronic Hep C - Patient reports being aware of this. - Will encourage f/u for treatment if he can get this [place]. - AST 35 on presentation Suspected adrenal insufficiency - [facility] records show pt was admitted in 2013 with hypotension and was started on fludrocortisone. Endocrinology follow up outpatient recommended however pt refused and has continued to be on med since then. - cortisol this admission WNL - will recommend jail taper in outpatient setting GERD - not on home medication for this h/o VTE on chronic anticoagulation with warfarin - INR 1.1, subtherapeutic. Increased from 2.5->5mg on 11/18 - pt says LAUREN DVT was 8 years ago and has been on warfarin since. No other hx a fib or other reason to be on anticoagulation. Will discuss with patient and cardiology the need for continued anticoagulation. Hx of Gout - continue home allopurinol DVT ppx: warfarin Dispo: Transitioned to po clindamycin for MRSA coverage. Pending infirmary bed placement. Continue wound care/vac. Pending cards recs in regards to CHF and anticoagulation need. Discussed with Dr. Knox Addendum - Attending - Attending Attestation Date/Time: 11/20/18 4209 I personally evaluated the patient and discussed the management with Dr. Flanagan I agree with the History, Examination, Assessment and Plan documented above with any addition or exceptions noted below. S/P left second toe amputation currently with wound vacuum, discussed continued length and route of antibiotic will confer with Dr King for rec. Advance activities look into transfer to [facility] with wound care, suggest slow steroid taper and conversion to po vit K antagonist underway INR still subtherapeutic.
[2018-11-20] MEDS: Acetaminophen 325 MG TAB PO SCH ×4 (06:20→23:13)
[2018-11-20] MEDS ORDERED: Furosemide 40 MG/4 ML VIAL SLOW IVP SCH (10:00)
[2018-11-20] MEDS ORDERED: Clindamycin 150 MG CAP PO SCH (10:00)
[2018-11-20] MEDS: Fludrocortisone Acetate 0.1 MG TAB PO SCH (10:06)
[2018-11-20] MEDS: Allopurinol 300 MG TAB PO SCH ×2 (10:06→21:12)
[2018-11-20] MEDS: Spironolactone 25 MG TAB PO SCH ×2 (10:06→21:15)
[2018-11-20] MEDS: Venlafaxine HCl XR 150 MG CAP PO SCH (10:06)
[2018-11-20] MEDS: Lisinopril 5 MG TAB PO SCH (10:07)
[2018-11-20] MEDS: Calcium Carbonate + Vit D 1 TAB PO SCH (10:08)
[2018-11-20] MEDS: traMADol HCl 50 MG TAB PO PRN ×2 (10:09→21:14)
[2018-11-20] MEDS: HumaLOG 300 UNITS/3 ML VIAL SC PRN ×2 (10:14→18:26)
[2018-11-20] MEDS: NPH, Human Insulin Isophane 300 UNIT/3 ML VIAL SC SCH ×2 (10:14→21:27)
--- NOTE | 2018-11-20 10:56 | PRG ---
DATE OF SERVICE: 11/20/2018 SUBJECTIVE: Mr. Thomas is doing well today. He is afebrile. His foot wound looks good. There is no cellulitis. Cultures of blood, one of two cultures probably false-positive coagulase-negative Staph, bacterial wound cultures MRSA. The patient's wound can be treated with a wound VAC. In my opinion, the patient will be discharged home with oral antibiotics for 10 days. Follow up final recommendations. with oral antibiotics for 10 days. He can be treated with a wound VAC or if in residential, they cannot do this, they can treat this with a saline wet-to-dry dressing. He should follow up with wound care in the residential. I will see him as needed this hospitalization. Please call if necessary. Job ID: [id number]
[2018-11-20] MEDS: Vancomycin HCl 1 GM in Premix Bag 1 BAG IVPB SCH (14:05)
--- NOTE | 2018-11-20 14:07 | CON ---
DATE OF CONSULTATION: HISTORY OF PRESENT ILLNESS: Ty Thomas is a 58-year-old white male, inmate , who was brought to the hospital for left toe pain. This is the second toe and he was found to have osteomyelitis, has undergone amputation of this. He has what sounds like a nonischemic cardiomyopathy. He was not told that he had any blocked arteries to have had a stent placed and has never been told that he had a myocardial infarction. He did undergo dual-chamber ICD placement at [facility] in [place] in approximately 2011. His defibrillator has gone off once. Despite being told that he has a weak heart, he currently is not on carvedilol and when asked about that, he has never heard of that medication. He also has had deep venous thrombosis in his arm and his leg and is on chronic Coumadin therapy. He denies ever having pulmonary embolism. Mr. Thomas denies any chest discomfort. He does become short of breath, this seems to be related to stresses and not to exertion. He does complain of significant leg edema and states his edema at the present time is much better than it usually is. PAST MEDICAL HISTORY: Cardiomyopathy, chronic kidney disease, unknown coronary arteries, diabetes type 1, hepatitis C, benign prostatic hypertrophy, GERD, and history of arm and leg DVT. PAST SURGICAL HISTORY: Left second toe amputation and dual-chamber ICD placement. SOCIAL HISTORY: Smoked 1 pack per day, but has not smoked since he has been incarcerated for the last approximately 17 years. He does not drink. REVIEW OF SYSTEMS: A 12-point review of systems are otherwise unremarkable. PHYSICAL EXAMINATION: VITAL SIGNS: Blood pressure 139/77 and pulse of 80. HEENT: PERRL. NECK: Supple. CHEST: Clear. CARDIAC: S1 and S2 normal without any S3, S4, or murmurs. ABDOMEN: Normal bowel sounds without tenderness. EXTREMITIES: Revealed 2+ pretibial edema. NEUROLOGIC: Grossly intact. SKIN: Warm and dry. LABORATORY DATA: EKG reveals normal sinus rhythm with low voltage. Possible anterior infarction. Hemoglobin 10.6, hematocrit 31.8, white count 4900, and platelets 169,000. INR 1.1. Sodium 136, potassium 3.5, chloride 104, carbon dioxide 26, BUN 26, and creatinine 2.07. Creatinine has been as high as 2.31 during this admission. IMPRESSION: 1. Probable nonischemic cardiomyopathy. 2. Dual-chamber implantable cardioverter-defibrillator placed at [facility]. 3. Hypertension. 4. Hyperlipidemia. 5. Diabetes. 6. Former smoker. 7. Status post amputation of left second toe. 8. Hepatitis C. 9. Benign prostatic hyperplasia. 10. Gastroesophageal reflux disease. 11. History of arm and leg deep venous thrombosis on chronic Coumadin therapy. 12. Hospitalized with a diagnosis of chronic kidney disease. RECOMMENDATION: Fasting lipid profile will be obtained. With his elevated creatinine, I would discontinue the lisinopril and instead place him on carvedilol. Also, I feel that he should be diuresed with his significant peripheral edema. He will be placed on Lasix 40 mg IV b.i.d. and his renal function will be monitored very closely. Hopefully with several days of diuresis, his lower extremity edema can resolve. Also, consideration should be given to a newer anticoagulant to prevent recurrent deep venous thrombosis. However, I am not certain that the [facility] system would pay for that. We will follow the patient with you. Job ID: [id number] MTDD
[2018-11-20] MEDS: Clindamycin 150 MG CAP PO SCH ×2 (14:19→21:12)
[2018-11-20] MEDS: Furosemide 40 MG/4 ML VIAL SLOW IVP SCH (14:20)
[2018-11-20] MEDS: Warfarin Sodium 5 MG TAB PO SCH (18:23)
[2018-11-20] MEDS: Carvedilol 3.125 MG TAB PO SCH (18:25)
[2018-11-20] MEDS: Enoxaparin Sodium 40 MG/0.4 ML SYRINGE SC SCH (21:13)
[2018-11-20] MEDS: Atorvastatin Calcium 20 MG TAB PO SCH (21:14)
[2018-11-21] MEDS: Furosemide 40 MG/4 ML VIAL SLOW IVP SCH ×2 (05:09→14:55)
[2018-11-21] MEDS: Clindamycin 150 MG CAP PO SCH ×3 (05:09→21:21)
[2018-11-21] MEDS: Acetaminophen 325 MG TAB PO SCH ×3 (05:09→18:37)
[2018-11-21] MEDS: traMADol HCl 50 MG TAB PO PRN ×2 (05:36→15:05)
[2018-11-21 06:05] LABS: INR-International Normal Ratio 1.3
--- NOTE | 2018-11-21 06:11 | PDOC.FM ---
- Subjective Subjective: NAEO. Reports leg swelling a little improved. Mild pain at surgical site, pain meds have helped. Denies fevers, problems breathing, ches tpain. - Objective MAR Reviewed: Yes Vital Signs & Weight: Vital Signs (12 hours) Temp Pulse Resp BP Pulse Ox 11/21/18 04:00 98.3 F 70 18 146/74 H 97 11/20/18 21:10 98.5 F 80 16 131/73 96 11/20/18 20:00 96 Weight Admit Weight 93 kg Weight 98.458 kg I&O: 11/19/18 11/20/18 11/21/18 06:59 06:59 06:59 Intake Total 1420 1647 800 Output Total 6602 5662 811 Balance -169 -903 -125 Result Diagrams: 11/21/18 06:53 11/21/18 05:18 Phys Exam - Physical Examination Constitutional: NAD HEENT: moist MMs, sclera anicteric Neck: full ROM Respiratory: no wheezing, clear to auscultation bilateral Cardiovascular: RRR, no significant murmur left foot bandaged s/p amputation with wound vac placement. 1+ up to shins Neurological: moves all 4 limbs Psychiatric: normal affect, A&O x 3 Dx/Plan (1) HFrEF (heart failure with reduced ejection fraction) Code(s): I50.20 - UNSPECIFIED SYSTOLIC (CONGESTIVE) HEART FAILURE Status: Acute (2) Nonischemic cardiomyopathy Code(s): I42.8 - OTHER CARDIOMYOPATHIES Status: Acute (3) Diabetic wet gangrene of the foot Code(s): E11.52 - 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 GANGRENE Status: Acute (4) Status post amputation of toe of left foot Code(s): Z89.422 - ACQUIRED ABSENCE OF OTHER LEFT TOE(S) Status: Acute (5) Insulin dependent diabetes mellitus Code(s): E11.9 - TYPE 2 DIABETES MELLITUS WITHOUT COMPLICATIONS; Z79.4 - HALF-WAY (CURRENT) USE OF INSULIN Status: Acute (6) BPH (benign prostatic hyperplasia) Code(s): N40.0 - BENIGN PROSTATIC HYPERPLASIA WITHOUT LOWER URINRY TRACT SYMP Status: Acute (7) CKD (chronic kidney disease) Code(s): N18.9 - CHRONIC KIDNEY DISEASE, UNSPECIFIED Status: Acute (8) HTN (hypertension) Code(s): I10 - ESSENTIAL (PRIMARY) HYPERTENSION Status: Acute - Plan Plan: 58YOM w/ a PMH significant for CAD, HTN, DMI, and CKD of an unknown stage admitted for wet gangrene of left foot s/p L 2nd metatarsal amputation. MRSA+ wet gangrene of L foot; POD #5, s/p L 2nd metatarsal amputation - Contine PO clindamycin - Wound care following, wound vac in place - Blood cultures s. epi (/), likely contaminant - No signs of systemic infectoin - pain well controlled, tylenol abhijeet, tramadol prn YANELIS on CKD3b - CKD 2/2 DM - best baseline 2.3 (2016) - daily BMP CHFrEF 2/2 likely nonischemic cardiomyopathy - Presented on CHF medications however no known diagnosis. Last echo 2013 with EF 55% w/diastolic dysfunction - Echo 11/17 showed EF 40-45%, LA mildly dilated, moderate mitral regurg, defibrillator in place - Anasarca on presentation could be 2/2 CHF vs inappropriate chronic fludrocortisone use since dx of adrenal insuff. is questionable - spironolactone, coreg - lisinopril held due to renal function - Monitor I/O, UOP, daily weights, fluid restrict diet Hypokalemia -replaced, will start on daily K+ replacement due to aggressive diuresis IDDM2 - Inc NPH to 20 units BID - Continue to monitor with ACHS HTN - continue home isosorbide, judith, spironolactone CAD - continue statin, aspirin H/o defibrillator & pacemaker placement - continue meds as above HLD - continue home lipitor chronic Hep C - Patient reports being aware of this. - Will encourage f/u for treatment if he can get this while in assisted. - AST 35 on presentation Suspected adrenal insufficiency - [facility] records show pt was admitted in 2013 with hypotension and was started on fludrocortisone. Endocrinology follow up outpatient recommended however pt refused and has continued to be on med since then. 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 Increased from 2.5->5mg on 11/18 - Will ask if [facility] can cover him for eliquis - pt says RUE DVT was 8 years ago and has been on warfarin since. No other hx a fib or other reason to be on anticoagulation. Will discuss with patient and cardiology the need for continued anticoagulation. Hx of Gout - continue home allopurinol DVT ppx: warfarin Dispo: Continue clindamycin. Increased NPH insulin regimen. Replaced potassium. Aggressive Mg replacement & recheck in morning. Continue diuresing with lasix, cards on board. Started on high intensity statin. Will contact [facility] for placement Discussed with Dr. Knox Addendum - Attending - Attending Attestation Date/Time: 11/21/18 8253 I personally evaluated the patient and discussed the management with Dr. Flanagan I agree with the History, Examination, Assessment and Plan documented above with any addition or exceptions noted below. INR is starting to bump for 7.5 mg today doubt DOAC will be covered but will inquire With [employer] rep. Continue look into disposition within [facility] system for imfirmary care. Replace magnesium this am . appreciate Cardiology rec ACEI on hold.
[2018-11-21 06:13] LABS: Anion Gap 9 mmol/L (10-20); BUN (Urea Nitrogen) 25 mg/dL (8.4-25.7); Calc. Creatinine Clearance 54 mL/min (70-130); Carbon Dioxide 28 mmol/L (22-29); Cardiac Risk 7.1 (Less than 4.5); Chloride 103 mmol/L (98-107); Cholesterol 107 mg/dl (< 200 Desired); Estimated GFR-MDRD 33; Glucose 84 mg/dL (70-105); HDL Cholesterol 15 mg/dL (>60 Neg Risk); LDL Cholesterol, Calculated 59 mg/dL; Potassium 3.3 mmol/L (3.5-5.1); Sodium 137 mmol/L (136-145); Triglycerides 166 mg/dL (Less than 150)
[2018-11-21 07:12] LABS: #Eosinphils 0.2 thou/uL (0.0-0.7); #Lymphocytes 1.3 thou/uL (1.20-3.40); #Monocytes 0.4 thou/uL (0.11-0.59); #Neutrophils 3.9 thou/uL (1.40-6.50); %Basophils 0.2 % (0.0-1.0); %Eosinophils 3.7 % (0.0-10.0); %Lymphocytes 21.7 % (21.0-51.0); %Neutrophils 67.5 % (42.0-75.0); Mean Corpuscular HGB CONC 32.7 g/dL (32.0-36.0); Mean Corpuscular Hemoglobin 29.2 pg (27.0-31.0); Mean Corpuscular Volume 89.3 fL (78.0-98.0); Mean Platelet Volume 7.2 fL (7.4-10.4); Platelet Count 177 thou/uL (130-400); RBC Distribution Width 12.9 % (11.5-14.5); Red Blood Cell (RBC) Count 3.41 mill/uL (4.70-6.10); White Blood Cell (WBC) Count 5.8 thou/uL (4.8-10.8)
[2018-11-21] MEDS ORDERED: Vancomycin HCl 1 GM in Premix Bag 1 BAG IVPB SCH (08:00)
[2018-11-21] MEDS ORDERED: Potassium Chloride 20 MEQ TAB PO SCH (09:00)
[2018-11-21] MEDS: Potassium Chloride 20 MEQ TAB PO SCH ×2 (09:58→12:19)
[2018-11-21] MEDS: Venlafaxine HCl XR 150 MG CAP PO SCH (09:58)
[2018-11-21] MEDS: Carvedilol 3.125 MG TAB PO SCH ×2 (09:58→18:33)
[2018-11-21] MEDS: Allopurinol 300 MG TAB PO SCH ×2 (09:59→21:15)
[2018-11-21] MEDS: Spironolactone 25 MG TAB PO SCH ×2 (09:59→21:15)
[2018-11-21] MEDS: Fludrocortisone Acetate 0.1 MG TAB PO SCH (09:59)
[2018-11-21] MEDS: Calcium Carbonate + Vit D 1 TAB PO SCH (09:59)
[2018-11-21] MEDS ORDERED: Magnesium Oxide 400 MG TAB PO ONE (10:00)
[2018-11-21] MEDS: NPH, Human Insulin Isophane 300 UNIT/3 ML VIAL SC SCH ×2 (10:03→21:17)
[2018-11-21] MEDS ORDERED: Magnesium 2 GM/50 ML 2 GM in Premix Bag 1 BAG IVPB SCH (10:30)
[2018-11-21] MEDS ORDERED: Magnesium Oxide 400 MG TAB PO SCH ×3 (10:30→21:00)
[2018-11-21] MEDS: Warfarin Sodium 7.5 MG TAB PO SCH (18:37)
[2018-11-21] MEDS ORDERED: Atorvastatin Calcium 40 MG TAB PO SCH (21:00)
[2018-11-21] MEDS: Enoxaparin Sodium 40 MG/0.4 ML SYRINGE SC SCH (21:15)
[2018-11-21] MEDS ORDERED: Atorvastatin Calcium 20 MG TAB PO SCH (21:45)
[2018-11-22] MEDS: Acetaminophen 325 MG TAB PO SCH ×5 (00:12→23:34)
[2018-11-22 05:15] LABS: INR-International Normal Ratio 1.4; Prothrombin Time 17.6 SEC (12.0-14.7)
[2018-11-22 05:32] LABS: Anion Gap 10 mmol/L (10-20); BUN (Urea Nitrogen) 33 mg/dL (8.4-25.7); Calc. Creatinine Clearance 56 mL/min (70-130); Carbon Dioxide 27 mmol/L (22-29); Chloride 103 mmol/L (98-107); Estimated GFR-MDRD 34; Glucose 86 mg/dL (70-105); Magnesium 1.2 mg/dL (1.6-2.6); Potassium 3.8 mmol/L (3.5-5.1); Sodium 136 mmol/L (136-145)
[2018-11-22] MEDS ORDERED: Magnesium 2 GM/50 ML 2 GM in Premix Bag 1 BAG IVPB SCH (05:45)
--- NOTE | 2018-11-22 05:54 | PDOC.FM ---
- Subjective Subjective: NAEO. Reports feeling a little tired. - Objective MAR Reviewed: Yes Vital Signs & Weight: Vital Signs (12 hours) Temp Pulse Resp BP Pulse Ox 11/22/18 04:00 97.9 F 70 20 129/71 96 11/21/18 20:00 96.3 F L 68 16 145/74 H 95 Weight Admit Weight 93 kg Weight 98.458 kg I&O: 11/20/18 11/21/18 11/22/18 06:59 06:59 06:59 Intake Total 1647 1200 580 Output Total 2550 1500 600 Balance -903 -300 -20 Result Diagrams: 11/21/18 06:53 11/22/18 04:55 Phys Exam - Physical Examination Constitutional: NAD HEENT: PERRLA, moist MMs Neck: full ROM Cardiovascular: RRR, no significant murmur wound vac on right foot s/p amputation of 3rd digit 1+ edema up to mid thighs Neurological: non-focal, moves all 4 limbs Psychiatric: normal affect, A&O x 3 Dx/Plan (1) Hypomagnesemia Code(s): E83.42 - HYPOMAGNESEMIA Status: Acute (2) HFrEF (heart failure with reduced ejection fraction) Code(s): I50.20 - UNSPECIFIED SYSTOLIC (CONGESTIVE) HEART FAILURE Status: Acute (3) Nonischemic cardiomyopathy Code(s): I42.8 - OTHER CARDIOMYOPATHIES Status: Acute (4) Diabetic wet gangrene of the foot Code(s): E11.52 - 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 GANGRENE Status: Acute (5) Status post amputation of toe of left foot Code(s): Z89.422 - ACQUIRED ABSENCE OF OTHER LEFT TOE(S) Status: Acute (6) Insulin dependent diabetes mellitus Code(s): E11.9 - TYPE 2 DIABETES MELLITUS WITHOUT COMPLICATIONS; Z79.4 - TRAFFIC LINE PAINTER (CURRENT) USE OF INSULIN Status: Acute (7) BPH (benign prostatic hyperplasia) Code(s): N40.0 - BENIGN PROSTATIC HYPERPLASIA WITHOUT LOWER URINRY TRACT SYMP Status: Acute (8) CKD (chronic kidney disease) Code(s): N18.9 - CHRONIC KIDNEY DISEASE, UNSPECIFIED Status: Acute (9) HTN (hypertension) Code(s): I10 - ESSENTIAL (PRIMARY) HYPERTENSION Status: Acute (10) Osteomyelitis Code(s): M86.9 - OSTEOMYELITIS, UNSPECIFIED Status: Resolved (11) Venous thromboembolism Code(s): I82.90 - ACUTE EMBOLISM AND THROMBOSIS OF UNSPECIFIED VEIN Status: Resolved - Plan Plan: 58YOM w/ a PMH significant for CAD, HTN, DMI, and CKD of an unknown stage admitted for wet gangrene of left foot s/p L 2nd metatarsal amputation. MRSA+ wet gangrene of L foot; POD #5, s/p L 2nd metatarsal amputation - Contine PO clindamycin - Wound care following, wound vac in place - Blood cultures s. epi (11/08), likely contaminant - No signs of systemic infectoin - pain well controlled, tylenol abhijeet, tramadol prn CHFrEF 2/2 likely nonischemic cardiomyopathy - Presented on CHF medications however no known diagnosis. Last echo 2013 with EF 55% w/diastolic dysfunction - Echo 11/17 showed EF 40-45%, LA mildly dilated, moderate mitral regurg, defibrillator in place - Anasarca on presentation could be 2/2 CHF vs inappropriate chronic fludrocortisone use since dx of adrenal insuff. 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 No other hx a fib or other reason to be on anticoagulation. Will discuss with patient and cardiology the need for continued anticoagulation. - Wafarin 7.5, INR increasing at 1.4 on 11/22 - Continue bridging until at goal CKD3b - suspected 2/2 uncontrolled DM2 - best baseline 2.3 (2017) - daily BMP Hypokalemia, resolved IDDM2 - POC <200 - Continue at current NPH dose - Continue to monitor with ACHS HTN - continue home isosorbide, spironolactone CAD - continue statin, aspirin H/o defibrillator & pacemaker placement - continue meds as above HLD - continue home lipitor chronic Hep C - Patient reports being aware of this. - Will encourage f/u for treatment if he can get this while in nursing home. - AST 35 on presentation Suspected adrenal insufficiency - [facility] records show pt was admitted in 2013 with hypotension and was started on fludrocortisone. Endocrinology follow up outpatient recommended however pt refused and has continued to be on med since then. - cortisol this admission WNL - will recommend jail taper in outpatient setting GERD - not on home medication for this Hx of Gout - continue home allopurinol DVT ppx: harvey-warfarin bridge Dispo: Continue clindamycin. Continue. NPH insulin regimen. Aggressive Mg replacement & recheck later today. Continue diuresing with lasix, cards on board -appreciate further recs on dispo and holding ACEI. Continue warfarin 7.5 to goal. [facility] placement. Discussed with Dr. Knox Addendum - Attending - Attending Attestation Date/Time: 11/22/181946 I personally evaluated the patient and discussed the management with Dr. Flanagan I agree with the History, Examination, Assessment and Plan documented above with any addition or exceptions noted below.
[2018-11-22] MEDS: Clindamycin 150 MG CAP PO SCH ×3 (06:27→21:33)
[2018-11-22] MEDS: Furosemide 40 MG/4 ML VIAL SLOW IVP SCH ×2 (06:28→15:36)
[2018-11-22] MEDS: NPH, Human Insulin Isophane 300 UNIT/3 ML VIAL SC SCH ×2 (09:17→21:34)
[2018-11-22] MEDS: Fludrocortisone Acetate 0.1 MG TAB PO SCH (09:19)
[2018-11-22] MEDS: Spironolactone 25 MG TAB PO SCH ×2 (09:19→21:34)
[2018-11-22] MEDS: Carvedilol 6.25 MG TAB PO SCH ×2 (09:19→16:10)
[2018-11-22] MEDS: Venlafaxine HCl XR 150 MG CAP PO SCH (09:19)
[2018-11-22] MEDS: Calcium Carbonate + Vit D 1 TAB PO SCH (09:19)
[2018-11-22] MEDS: Allopurinol 300 MG TAB PO SCH ×2 (09:19→21:33)
[2018-11-22] MEDS: Potassium Chloride 20 MEQ TAB PO SCH (09:20)
[2018-11-22] MEDS: Warfarin Sodium 7.5 MG TAB PO SCH (16:10)
[2018-11-22] MEDS: Enoxaparin Sodium 40 MG/0.4 ML SYRINGE SC SCH (21:33)
[2018-11-22] MEDS: Atorvastatin Calcium 20 MG TAB PO SCH (21:34)
[2018-11-22] MEDS: traMADol HCl 50 MG TAB PO PRN (23:34)
[2018-11-23 05:42] LABS: INR-International Normal Ratio 1.7; Prothrombin Time 20.5 SEC (12.0-14.7)
[2018-11-23 06:00] LABS: Anion Gap 10 mmol/L (10-20); BUN (Urea Nitrogen) 33 mg/dL (8.4-25.7); Calc. Creatinine Clearance 46 mL/min (70-130); Carbon Dioxide 25 mmol/L (22-29); Chloride 100 mmol/L (98-107); Estimated GFR-MDRD 31; Glucose 125 mg/dL (70-105); Magnesium 1.8 mg/dL (1.6-2.6); Potassium 3.9 mmol/L (3.5-5.1); Sodium 131 mmol/L (136-145)
[2018-11-23] MEDS: Acetaminophen 325 MG TAB PO SCH ×3 (06:41→18:14)
[2018-11-23] MEDS: Clindamycin 150 MG CAP PO SCH ×3 (06:41→21:23)
[2018-11-23] MEDS: Furosemide 40 MG/4 ML VIAL SLOW IVP SCH (06:43)
--- NOTE | 2018-11-23 06:50 | PDOC.FM ---
- Subjective Subjective: had 6 diarrhea episodes in past 24 hours. some abdominal pain. denies blood, nausea, vomiting. Mild pain at surgical site, meds help. no other complaints at this time. - Objective MAR Reviewed: Yes Vital Signs & Weight: Vital Signs (12 hours) Temp Pulse Resp BP Pulse Ox 11/23/18 03:18 97.4 F L 78 17 130/68 93 L 11/22/18 23:47 93 L 11/22/18 20:00 97.0 F L 72 18 139/73 92 L Weight Admit Weight 93 kg Weight 88.405 kg I&O: 11/21/18 11/22/18 11/23/18 06:59 06:59 06:59 Intake Total 1200 880 420 Output Total 1500 1100 2500 Balance -300 -220 -2080 Result Diagrams: 11/21/18 06:53 11/23/18 05:22 Phys Exam - Physical Examination Constitutional: NAD HEENT: moist MMs Neck: no JVD, full ROM Respiratory: no wheezing, clear to auscultation bilateral Cardiovascular: RRR, no significant murmur Gastrointestinal: soft, non-tender 1+ edema up to mid thighs. wound vac on third metatarsal digit of left foot Neurological: non-focal, moves all 4 limbs Psychiatric: normal affect, A&O x 3 Dx/Plan (1) Hypomagnesemia Code(s): E83.42 - HYPOMAGNESEMIA Status: Acute (2) HFrEF (heart failure with reduced ejection fraction) Code(s): I50.20 - UNSPECIFIED SYSTOLIC (CONGESTIVE) HEART FAILURE Status: Acute (3) Nonischemic cardiomyopathy Code(s): I42.8 - OTHER CARDIOMYOPATHIES Status: Acute (4) Diabetic wet gangrene of the foot Code(s): E11.52 - 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 GANGRENE Status: Acute (5) Status post amputation of toe of left foot Code(s): Z89.422 - ACQUIRED ABSENCE OF OTHER LEFT TOE(S) Status: Acute (6) Insulin dependent diabetes mellitus Code(s): E11.9 - TYPE 2 DIABETES MELLITUS WITHOUT COMPLICATIONS; Z79.4 - SUB ACUTE CARE NURSE (CURRENT) USE OF INSULIN Status: Acute (7) BPH (benign prostatic hyperplasia) Code(s): N40.0 - BENIGN PROSTATIC HYPERPLASIA WITHOUT LOWER URINRY TRACT SYMP Status: Acute (8) CKD (chronic kidney disease) Code(s): N18.9 - CHRONIC KIDNEY DISEASE, UNSPECIFIED Status: Acute (9) HTN (hypertension) Code(s): I10 - ESSENTIAL (PRIMARY) HYPERTENSION Status: Acute (10) Osteomyelitis Code(s): M86.9 - OSTEOMYELITIS, UNSPECIFIED Status: Resolved (11) Venous thromboembolism Code(s): I82.90 - ACUTE EMBOLISM AND THROMBOSIS OF UNSPECIFIED VEIN Status: Resolved - Plan Plan: 58YOM w/ a PMH significant for CAD, HTN, DMI, and CKD of an unknown stage admitted for wet gangrene of left foot s/p L 2nd metatarsal amputation. MRSA+ wet gangrene of L foot; POD #7, s/p L 2nd metatarsal amputation - Contine PO clindamycin - Wound care following, wound vac in place - Blood cultures s. epi (11/08), likely contaminant - No signs of systemic infectoin - pain well controlled, tylenol abhijeet, tramadol prn CHFrEF 2/2 likely nonischemic cardiomyopathy - Presented on CHF medications however no known diagnosis. Last echo 2013 with EF 55% w/diastolic dysfunction - Echo 11/17 showed EF 40-45%, LA mildly dilated, moderate mitral regurg, defibrillator in place - Anasarca on presentation could be 2/2 CHF vs inappropriate chronic fludrocortisone use since dx of adrenal insuff. 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 No other hx a fib or other reason to be on anticoagulation. Will discuss with patient and cardiology the need for continued anticoagulation. - Wafarin 7.5, INR increasing at 1.7 on 11/23 - Continue bridging until at goal of 2-3 YANELIS on CKD3b - suspected 2/2 uncontrolled - best baseline 2.3 (2017) - daily BMP Hypomagnesemia, resolved Hypokalemia, resolved IDDM2 - POC <200 - Continue at current NPH dose - Continue to monitor with ACHS HTN - continue home isosorbide, spironolactone CAD - continue statin, aspirin H/o defibrillator & pacemaker placement - continue meds as above HLD - continue home lipitor chronic Hep C - Patient reports being aware of this. - Will encourage f/u for treatment if he can get this while in jail. - AST 35 on presentation Suspected adrenal insufficiency - [facility] records show pt was admitted in 2013 with hypotension and was started on fludrocortisone. Endocrinology follow up outpatient recommended however pt refused and has continued to be on med since then. - cortisol this admission WNL - will recommend intermediate taper in outpatient setting GERD - not on home medication for this Hx of Gout - continue home allopurinol DVT ppx: harvey-warfarin bridge Dispo: Continue clindamycin. Continue NPH insulin regimen. Will switch to PO lasix since diuresed well yesterday, hold ACEI. Continue warfarin 7.5 to goal. Pending [facility] placement. Discussed with Dr. Knox Addendum - Attending - Attending Attestation Date/Time: 11/23/18 9433 I personally evaluated the patient and discussed the management with Dr. Flanagan I agree with the History, Examination, Assessment and Plan documented above with any addition or exceptions noted below.Loose bm need r/o c.dificile.
[2018-11-23] MEDS: Carvedilol 6.25 MG TAB PO SCH ×2 (10:16→16:34)
[2018-11-23] MEDS: Potassium Chloride 20 MEQ TAB PO SCH (10:17)
[2018-11-23] MEDS: Spironolactone 25 MG TAB PO SCH ×2 (10:17→21:23)
[2018-11-23] MEDS: Venlafaxine HCl XR 150 MG CAP PO SCH (10:18)
[2018-11-23] MEDS: Allopurinol 300 MG TAB PO SCH ×2 (10:18→21:23)
[2018-11-23] MEDS: Fludrocortisone Acetate 0.1 MG TAB PO SCH (10:18)
[2018-11-23] MEDS: NPH, Human Insulin Isophane 300 UNIT/3 ML VIAL SC SCH ×2 (10:18→21:24)
[2018-11-23] MEDS ORDERED: Aspirin 81 mg Enteric Coated Tablet PO SCH (11:45)
[2018-11-23 12:59] VITALS: BMI 25.8
[2018-11-23] MEDS: traMADol HCl 50 MG TAB PO PRN (14:02)
[2018-11-23] MEDS: Furosemide 40 MG TAB PO SCH (14:03)
[2018-11-23] MEDS: Warfarin Sodium 7.5 MG TAB PO SCH (16:35)
[2018-11-23] MEDS: Atorvastatin Calcium 20 MG TAB PO SCH (21:23)
[2018-11-23] MEDS: Enoxaparin Sodium 40 MG/0.4 ML SYRINGE SC SCH (21:23)
[2018-11-24] MEDS: Acetaminophen 325 MG TAB PO SCH ×4 (00:20→17:59)
--- NOTE | 2018-11-24 06:05 | PDOC.FM ---
- Subjective Subjective: Hypoglycemic episode early this morning. Not feeling "up to par". Denies seizures, palpitations, lightheadedness. Unable to further describe why doesn't not feel well. Explained likely from low sugars - Objective MAR Reviewed: Yes Vital Signs & Weight: Vital Signs (12 hours) Temp Pulse Resp BP BP Pulse Ox 11/24/18 03:47 98.7 F 89 16 135/71 95 11/23/18 19:50 98.2 F 86 16 118/65 96 Weight Admit Weight 93 kg Weight 81.692 kg I&O: 11/22/18 11/23/18 11/24/18 06:59 06:59 06:59 Intake Total 880 820 Output Total 1100 3600 600 Balance -220 -0100 -600 Result Diagrams: 11/21/18 06:53 11/24/18 05:23 Phys Exam - Physical Examination Constitutional: NAD HEENT: moist MMs, sclera anicteric, oral pharynx no lesions Respiratory: no wheezing, clear to auscultation bilateral Cardiovascular: RRR, no significant murmur 1+ edema up to knees, wound vac in place on left foot s/p amputation Neurological: non-focal, moves all 4 limbs Psychiatric: normal affect, A&O x 3 Dx/Plan (1) Hypomagnesemia Code(s): E83.42 - HYPOMAGNESEMIA Status: Acute (2) HFrEF (heart failure with reduced ejection fraction) Code(s): I50.20 - UNSPECIFIED SYSTOLIC (CONGESTIVE) HEART FAILURE Status: Acute (3) Nonischemic cardiomyopathy Code(s): I42.8 - OTHER CARDIOMYOPATHIES Status: Acute (4) Diabetic wet gangrene of the foot Code(s): E11.52 - 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 GANGRENE Status: Acute (5) Status post amputation of toe of left foot Code(s): Z89.422 - ACQUIRED ABSENCE OF OTHER LEFT TOE(S) Status: Acute (6) Insulin dependent diabetes mellitus Code(s): E11.9 - TYPE 2 DIABETES MELLITUS WITHOUT COMPLICATIONS; Z79.4 - SNF (CURRENT) USE OF INSULIN Status: Acute (7) BPH (benign prostatic hyperplasia) Code(s): N40.0 - BENIGN PROSTATIC HYPERPLASIA WITHOUT LOWER URINRY TRACT SYMP Status: Acute (8) CKD (chronic kidney disease) Code(s): N18.9 - CHRONIC KIDNEY DISEASE, UNSPECIFIED Status: Acute (9) HTN (hypertension) Code(s): I10 - ESSENTIAL (PRIMARY) HYPERTENSION Status: Acute (10) Osteomyelitis Code(s): M86.9 - OSTEOMYELITIS, UNSPECIFIED Status: Resolved (11) Venous thromboembolism Code(s): I82.90 - ACUTE EMBOLISM AND THROMBOSIS OF UNSPECIFIED VEIN Status: Resolved - Plan Plan: Plan: 58YOM w/ a PMH significant for CAD, HTN, DMI, and CKD of an unknown stage admitted for wet gangrene of left foot s/p L 2nd metatarsal amputation. MRSA+ wet gangrene of L foot; POD #7, s/p L 2nd metatarsal amputation - Contine PO clindamycin - Wound care following, wound vac in place - Blood cultures s. epi (1/), likely contaminant - No signs of systemic infectoin - pain well controlled, tylenol abhijeet, tramadol prn CHFrEF 2/2 likely nonischemic cardiomyopathy - Presented on CHF medications however no known diagnosis. Last echo 2013 with EF 55% w/diastolic dysfunction - Echo 11/17 showed EF 40-45%, LA mildly dilated, moderate mitral regurg, defibrillator in place - Anasarca on presentation could be 2/2 CHF vs inappropriate chronic fludrocortisone use since dx of adrenal insuff. is questionable - continue PO lasix, spironolactone, coreg, statin - lisinopril held due to renal function - Monitor I/O, UOP, daily weights, fluid restrict diet IDDM2 - Hypoglycemic epiosde this AM, protocol in place - Oct. 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 No other hx a fib or other reason to be on anticoagulation. Will discuss with patient and cardiology the need for continued anticoagulation. - Wafarin 7.5, INR at goal, continue lovenox for few more days YANELIS on CKD3b - suspected 2/2 uncontrolled - best baseline 2.3 (2016) - daily BMP Hypomagnesemia, resolved Hypokalemia, resolved HTN - continue home isosorbide, spironolactone CAD - continue statin, aspirin H/o defibrillator & pacemaker placement - continue meds as above HLD - continue home lipitor chronic Hep C - Patient reports being aware of this. - Will encourage f/u for treatment if he can get this while in nursing home. - AST 35 on presentation Suspected adrenal insufficiency - [facility] records show pt was admitted in 2013 with hypotension and was started on fludrocortisone. Endocrinology follow up outpatient recommended however pt refused and has continued to be on med since then. - cortisol this admission WNL - will recommend prison taper in outpatient setting GERD - not on home medication for this Hx of Gout - continue home allopurinol DVT ppx: harvey-warfarin bridge Dispo: Continue clindamycin. Continue NPH insulin regimen. Continue diuresing with PO lasix. Hold ACEI due to renal function. Continue warfarin 7.5 to goal. Pending [facility] placement. Discussed with Dr. Knox Addendum - Attending - Attending Attestation Date/Time: 11/24/18 6026 I personally evaluated the patient and discussed the management with Dr. Flanagan I agree with the History, Examination, Assessment and Plan documented above with any addition or exceptions noted below. Improved will continue adjust insulin dosage to optimize BS control and decrease lasix as euvolemic currently expectant management .
[2018-11-24] MEDS: Clindamycin 150 MG CAP PO SCH ×2 (06:16→15:33)
[2018-11-24 06:34] LABS: Prothrombin Time 22.3 SEC (12.0-14.7)
[2018-11-24 06:49] LABS: Anion Gap 9 mmol/L (10-20); BUN (Urea Nitrogen) 30 mg/dL (8.4-25.7); Calc. Creatinine Clearance 42 mL/min (70-130); Calcium 8.1 mg/dL (7.8-10.44); Carbon Dioxide 26 mmol/L (22-29); Chloride 101 mmol/L (98-107); Estimated GFR-MDRD 30; Potassium 4.2 mmol/L (3.5-5.1); Sodium 132 mmol/L (136-145)
[2018-11-24 06:54] LABS: Glucose 45 mg/dL (70-105)
[2018-11-24] MEDS ORDERED: NPH, Human Insulin Isophane 300 UNIT/3 ML VIAL SC SCH ×2 (08:54→09:00)
[2018-11-24] MEDS: Potassium Chloride 20 MEQ TAB PO SCH (10:02)
[2018-11-24] MEDS: Allopurinol 300 MG TAB PO SCH (10:02)
[2018-11-24] MEDS: Fludrocortisone Acetate 0.1 MG TAB PO SCH (10:02)
[2018-11-24] MEDS: Furosemide 40 MG TAB PO SCH (10:02)
[2018-11-24] MEDS: Spironolactone 25 MG TAB PO SCH (10:02)
[2018-11-24] MEDS: Venlafaxine HCl XR 150 MG CAP PO SCH (10:02)
[2018-11-24] MEDS: Carvedilol 6.25 MG TAB PO SCH ×2 (10:03→17:58)
[2018-11-24] MEDS: Warfarin Sodium 7.5 MG TAB PO SCH (17:58)
[2018-11-24 19:58] VITALS: BP 121/67; TEMP 98.4
[2018-11-25] MEDS ORDERED: Furosemide 40 MG TAB PO SCH (09:00)
--- NOTE | 2018-11-26 13:35 | DIS ---
DATE OF ADMISSION: 11/15/2018 DATE OF DISCHARGE: 11/24/2018 RESIDENT: Radha Flanagan MD ADMITTING ATTENDING: Melissa Rodriguez MD DISCHARGE ATTENDING: Adi Knox MD CONSULTS: 1. General Surgery, Dr. Roman King. 2. Cardiology, Dr. Renzo Webb. PROCEDURES: Amputation of left 3rd metatarsal. PRIMARY DIAGNOSES: 1. 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 2. Acute heart failure with reduced ejection fraction. 3. History of unprovoked deep vein thrombosis with subtherapeutic INR. 4. Insulin-dependent diabetes mellitus, 2. 5. Acute kidney injury on chronic kidney disease, 3. SECONDARY DIAGNOSES: 1. Hypertension. 2. Hyperlipidemia. 3. Coronary artery disease. 4. Hepatitis C. 5. Gout. 6. Possible adrenal insufficiency. 7. Long-term use of steroids. DISCHARGE MEDICATIONS: 1. Aldactone 25 mg p.o. b.i.d. 2. Insulin regular (Novolin R) 15 units subcu b.i.d. 3. Isosorbide mononitrate ER 30 mg p.o. daily. 4. Fludrocortisone 0.1 mg p.o. daily. 5. Atorvastatin 40 mg p.o. daily. 6. Aspirin 81 mg p.o. daily. 7. Allopurinol 300 mg p.o. b.i.d. 8. Warfarin 7.5 mg p.o. daily. 9. Venlafaxine 150 mg p.o. daily. 10. Acetaminophen 650 mg p.o. q.6 hours p.r.n. for pain. 11. Coreg (carvedilol) 12.5 mg p.o. b.i.d. 12. Clindamycin 600 mg p.o. t.i.d. with a completion of 10-day course. 13. Potassium chloride 20 mEq q.a.m. with meal. 14. Tramadol 50 mg p.o. q.6 hours p.r.n. for pain. 15. Lasix 20 mg p.o. daily. 16. Magnesium oxide 400 mg p.o. daily. HISTORY OF PRESENT ILLNESS/HOSPITAL COURSE: Mr. Ty Thomas is a 58-year- old inmate, who presented to the ED for chief complaint of left toe pain for the past week. On admission his left foot was gangrenous and he met sepsis criteria. He originally first started noticing two blisters on the dorsal surface that started extending to the skin causing necrosis. Confirmatory imaging showed osteomyelitis at the left 3rd metatarsal and he was taken back to surgery. He had his 3rd digit amputated with wound VAC placement. Blood cultures and bone biopsy were positive for MRSA and he was started on vancomycin with eventual transition to clindamycin. Gangrene, status post left 2nd metatarsal amputation: Please continue clindamycin for 7 more days with wound VAC and wound care. Continue pain medication as appropriate as well. CHF: In addition, the patient presented with 2+ edema up to mid thighs, with no breathing problems. Repeat echo showed worsening of ejection fraction of 40% to 45% down from 55% in 2013. CHF exacerbation, the etiology was unknown but it was not thought to be due to ischemic cardiomyopathy. He was started on a beta-richard but not on ACEI/ARB due to worsening of renal function. He was diuresed appropriately with IV lasix with much improvement of clinical edema. IDDM, 2: The patient also has a history of insulin dependent type 2 DM. His hospital course was complicated by hypoglycemic episode as we continued to titrate his insulin. Appropriate measures were taken to decrease his normal home insulin dose to prevent this. Pt will need continuing monitoring and insulin regimen adjustment. History of adrenal insufficiency: It was unsure us to whether or not the patient actually had acute adrenal insufficiency. He came in presenting on long-term steroids, fludrocortisone 0.1 mg daily. We kept him on this dose and plan for recommending outpatient steroid taper as appropriate. History of VTE, on chronic anticoagulation with subtherapeutic INR: The patient presented with INR that was subtherapeutic. He was was kept on a lovenox- warfarin bridge. On discharge, his INR was at goal at 2 and Lovenox was discontinued. Please continue daily INRs with appropriate adjustments. Hypomagnesemia: The patient also experienced hypomagnesemia likely due to the aggressive diuresis. Please continue with daily BMPs, checking electrolytes and replacing as appropriate. The patient was started on daily mag supplement in the meantime and upon discharge Mg level was normal. Deconditioning: Please continue with physical therapy in order to help the patient with reconditioning. Stools: The patient had multiple loose stools. We attempted to collect a stool sample for C difficile. However, it had resolved on his last day and so we decided to discontinue the order. The patient experienced loose stools. He did have history of antibiotic use from the osteomyelitis. Please consider retesting for C difficile should diarrhea re-occur. DISPOSITION: Stable. DISCHARGE INSTRUCTIONS: 1. Location: [facility]. 2. Diet: a. Heart healthy, fluid restrict to less than 1500 mL a day. b. Diabetic diet. 3. Activity: As tolerated, please continue with Physical Therapy. 4. Followup: Please follow up as instructed on the packet. Please follow up with daily BMPs with continued diuresis. Please follow up with mag checks in order to make sure is appropriately placed. Please follow up with general surgeon in order to continue wound VAC care placement and discontinuation with appropriate antibiotics and for postop assessment. To follow up with Cardiology for continued care of heart failure with reduced ejection fraction. Job ID: [id number] HUGH
--- NOTE | 2018-11-28 11:42 | PQF ---
ETELVINASTACEYKAMRYN RAMIREZ [id number] CLINICAL DOCUMENTATION CLARIFICATION FORM: POST DISCHARGE DATE: 11/28/2018 ATTN: Dr. Knox Please exercise your independent, professional judgment in responding to the clarification form. Clinical indicators are provided on the bottom of this form for your review Please check appropriate box(s) to clarify if the following diagnosis has been ruled in or ruled out: Sepsis [x ]Ruled in diagnosis [ c ] Continue to treat [ ] Resolved [ ] Ruled out diagnosis [ ] Cannot rule out diagnosis [ ] Other diagnosis (please specify) [ ] Unable to determine In addition, please specify: Present on Admission (POA): [ x ] Yes [ ] No [ ] Unable to determine For continuity of documentation, please document condition throughout progress notes and discharge summary. Thank You. CLINICAL INDICATORS - SIGNS / SYMPTOMS / LABS Per discharge summary: On admission his left foot was gangrenous and he met sepsis criteria. Blood cultures and bone biopsy were positive for MRSA. Per H&P: Afebrile, WBC wnl, elevated CRP, x-ray without evidence for osseous involvement. Per Family Medicine Progress Notes: Blood cultures with staph epidermidis, likely contaminant. Wound culture with MRSA. RISK FACTORS Diabetic left foot infection with wet gangrene second toe and osteomyelitis. TREATMENTS IV Vancomycin/Zosyn. IV Clindamycin. (This form is maintained as a part of the permanent medical record) 2014 [employer]. All Rights Reserved Patricia [email or web address] [phone] x [phone]
== END 2018-11-24 20:25 | DRG 853 ==
LOC: ERS 16:39 → EEVIPCON 11-15 00:45 → ERHOLD 11-15 00:45 → 2NO 11-15 22:28 → T4-A 11-24 13:16
PROVIDERS: ADMIT Family Medicine; ATTEND Family Medicine
PROC: 0Y6S0Z0 Detachment at Left 2nd Toe, Complete, Open Approach (ICD-10-PCS; principal; 2018-11-16)
DX: A41.9 Sepsis, unspecified organism (principal); I50.21 Acute systolic (congestive) heart failure; E11.52 Type 2 diabetes mellitus with diabetic peripheral angiopathy with gangrene; I96 Gangrene, not elsewhere classified; L03.116 Cellulitis of left lower limb; N17.9 Acute kidney failure, unspecified; I13.0 Hypertensive heart and chronic kidney disease with heart failure and stage 1 through stage 4 chronic kidney disease, or unspecified chronic kidney disease; E27.40 Unspecified adrenocortical insufficiency; M86.8X7 Other osteomyelitis, ankle and foot; E11.69 Type 2 diabetes mellitus with other specified complication; E11.22 Type 2 diabetes mellitus with diabetic chronic kidney disease; N18.3 Chronic kidney disease, stage 3 (moderate); M10.9 Gout, unspecified; I25.10 Atherosclerotic heart disease of native coronary artery without angina pectoris; B18.2 Chronic viral hepatitis C; I25.5 Ischemic cardiomyopathy; E11.649 Type 2 diabetes mellitus with hypoglycemia without coma; N40.0 Benign prostatic hyperplasia without lower urinary tract symptoms; K21.9 Gastro-esophageal reflux disease without esophagitis; E83.42 Hypomagnesemia; E87.6 Hypokalemia; B95.62 Methicillin resistant Staphylococcus aureus infection as the cause of diseases classified elsewhere; Z87.891 Personal history of nicotine dependence; Z86.718 Personal history of other venous thrombosis and embolism; Z88.5 Allergy status to narcotic agent; Z79.4 Long term (current) use of insulin; Z79.01 Long term (current) use of anticoagulants; Z79.82 Long term (current) use of aspirin; Z79.52 Long term (current) use of systemic steroids; Z79.899 Other long term (current) drug therapy; Z95.810 Presence of automatic (implantable) cardiac defibrillator
CPT/HCPCS: 36415; 36416; 71045; 80048; 80053; 80061; 80202; 82533; 83735; 83880; 84484; 85014; 85018; 85025; 85049; 85610; 85730; 86140; 87040; 87070; 87077; 87149; 87186; 87205; 87324; 87449; 88305; 88311; 93005; 93306; 96360; 96361; C9113; J1650; J1815; J1940; J2250; J2270; J2543; J3010; J3370; J3475; J7050